=== PATIENT | male | born 1950 | race Two or more races ===

== ENCOUNTER 2017-12-24 10:41 | Inpatient (IN) | payer OTHER, BC ==
[2017-12-24 11:11] VITALS: BMI 24.7
--- NOTE | 2017-12-24 13:04 | PN ---
JARRED Progress Note Note: Patient brought in to [facility] for detox by set key driver. Intoxicated but alert and oriented. Patient independently went to store and returned to [facility] stating he fell. Denies hitting head on floor/object but fall unwittnessed by staff. Patient evaluated and alert and oriented to name and place. Denies dizziness, CP, SOB and headache. Obj: General: alert, oriented to name and place. Intoxicated. In NAD Skin: small abrasion noted on left outer ankle area. Small amount of bloody discharge. Warm and dry. Car: S1S2 Resp: CTA BL Ext: trace pedal edema, varicose veins. No redness or swelling noted Neuro: +PERRLA, EOMs intact BL, intoxicated. Alert and knows name and that he is in hospital. A/P: Unwitnessed fall Will transfer to ER for evaluation Fall Protocol #[address] Delgado
--- NOTE | 2017-12-24 20:42 | HP ---
CIWA Score - CIWA Score Nausea/Vomitin-Mild Nausea/No Vomiting Muscle Tremors: 4-Moderate,w/Arms Extend Anxiety: 4-Mod. Anxious/Guarded Agitation: 4-Moderately Restless Paroxysmal Sweats: No Perspiration Orientation: 1-Uncertain about Date Tacttile Disturbances: 0-None Auditory Disturbances: 0-None Visual Disturbances: 0-None Headache: 0-None Present CIWA-Ar Total Score: 14 Admission ROS BHS - HPI Chief Complaint: SEEKING DETOX FOR ALCOJ=HOL RELATED WITHDRAWAL SX'S. Allergies/Adverse Reactions: Allergies Allergy/AdvReac Type Severity Reaction Status Date / Time No Known Allergies Allergy Verified 12/24/17 17:59 History of Present Illness: 27 Y.O. MALE WITH LONG HX/O ALCOHOLISM PRESENTS FOR DETOX. CLIENT WITH REPORTED FALL WHILE OUTSIDE FACILITY. RETURNS FROM [facility] AFTER BEING MEDICALLY CLEARED. KNOWN TO PREVIOUS DETOX/ REHAB. STATES HAS BEEN HERE MANY YEARS AGO. REPORTS LONGEST CLEAN TIME 10 YEARS. DENIES HX/O PAST AND PRESENT THOUGH OF SI/HI, SIEZURES, BLACKOUTS, AND A/V HALLUCINATIONS Exam Limitations: No Limitations - Ebola screening Have you traveled outside of the country in the last 21 days: No Have you had contact with anyone from an Ebola affected area: No Have you been sick,other than usual withdrawal symptoms: No Do you have a fever: No - Review of Systems Constitutional: Chills, Loss of Appetite, Changes in sleep EENT: reports: Other (CORRECTIVE LENSES) Respiratory: reports: No Symptoms reported Cardiac: reports: No Symptoms Reported GI: reports: Poor Appetite, Poor Fluid Intake : reports: No Symptoms Reported Musculoskeletal: reports: Back Pain (CHRONIC) Integumentary: reports: No Symptoms Reported Neuro: reports: No Symptoms reported Endocrine: reports: No Symptoms Reported Hematology: reports: No Symptoms Reported Psychiatric: reports: Anxious Other Systems: Reviewed and Negative Patient History - Patient Medical History Hx Anemia: No Hx Asthma: No Hx Chronic Obstructive Pulmonary Disease (COPD): No Hx Cancer: No Hx Cardiac Disorders: No Hx Congestive Heart Failure: No Hx Hypertension: No Hx Hypercholesterolemia: No Hx Pacemaker: No HX Cerebrovascular Accident: No Hx Seizures: No Hx Dementia: No Hx Diabetes: No Hx Gastrointestinal Disorders: No Hx Liver Disease: No Hx Genitourinary Disorders: No Hx Sexually Transmitted Disorders: No Hx Renal Disease (ESRD): No Hx Thyroid Disease: No Hx Human Immunodeficiency Virus (HIV): No Hx Hepatitis C: No Hx Depression: No Hx Suicide Attempt: No Hx Bipolar Disorder: No Hx Schizophrenia: No Other Medical History: DENIES - Patient Surgical History Past Surgical History: No Anesthesia Reaction: No - PPD History Previous Implant?: Yes Documented Results: Negative w/o proof Implanted On Prior [facility] Admission?: No PPD to be Administered?: Yes - Smoking Cessation Smoking history: Former smoker Have you smoked in the past 12 months: No If you are a former smoker, when did you quit?: 1 yr ago Hx Chewing Tobacco Use: No Initiated information on smoking cessation: No - Substance & Tx. History Hx Alcohol Use: Yes Hx Substance Use: Yes Substance Use Type: Alcohol Hx Substance Use Treatment: Yes ([facility]) - Substances Abused Alcohol Route: Oral Frequency: Daily Amount used: 12pk beer/ 1 pint vodka Age of first use: 15 Date of Last Use: 12/24/17 Family Disease History - Family Disease History Family Disease History: Diabetes: Father, Mother Admission Physical Exam [facility] - Vital Signs Vital Signs: Vital Signs - 24 hr 12/24/17 12/24/17 01:00 11:04 Temperature 97.7 F 97.7 F Pulse Rate 71 71 Respiratory 20 20 Rate Blood Pressure 116/71 116/71 - Physical General Appearance: Yes: Appropriately Dressed, Tremorous HEENTM: Yes: EOMI, Normocephalic, Normal Voice, SHILA, Pharynx Normal, Other ( CORRECTIVE LENSES) Respiratory: Yes: Chest Non-Tender, Lungs Clear, Normal Breath Sounds, No Respiratory Distress, No Accessory Muscle Use Neck: Yes: No masses,lesions,Nodules, Supple, Trachea in good position Breast: Yes: Breast Exam Deferred Cardiology: Yes: Regular Rhythm, Regular Rate, S1, S2 Abdominal: Yes: Non Tender, Soft, Protuberent Genitourinary: Yes: Within Normal Limits Back: Yes: Normal Inspection Musculoskeletal: Yes: Other (UNSTEADY GAIT) Extremities: Yes: Normal Range of Motion, Non-Tender, Tremors Neurological: Yes: Alert Integumentary: Yes: Dry, Warm, Other (FLUSHED FACE ABRASION TO L OUTER ANKLE) Lymphatic: Yes: Within Normal Limits - Diagnostic (1) Status post fall Current Visit: Yes Status: Acute (2) Alcohol dependence with uncomplicated withdrawal Current Visit: Yes Status: Acute (3) Varicose vein of leg Current Visit: Yes Status: Chronic Qualifiers: Varicose vein complication: unspecified Laterality: bilateral Qualified Code(s): I83.93 - Asymptomatic varicose veins of bilateral lower extremities (4) Abrasions of multiple sites Current Visit: Yes Status: Acute Comment: L OUTER ANKLE Cleared for Admission [facility] - Detox or Rehab [facility] Level of Care: Medically Managed Detox Regimen/Protocol: Librium Claeared for Rehab Admission: No [facility] Breath Alcohol Content Breath Alcohol Content: 0.223 Urine Drug Screen - Results Drug Screen Negative: Yes
[2017-12-24] MEDS ORDERED: hydrOXYzine PAMOATE 50 MG CAPSULE (FP) PO PRN (20:50)
[2017-12-24] MEDS ORDERED: MENTHOL/PHENOL 1 EACH UD MM PRN (20:50)
[2017-12-24] MEDS ORDERED: MAG HYDROX/AL HYDROX/SIMETH 30 ML UNIT-DOSE CUP PO PRN (20:50)
[2017-12-24] MEDS ORDERED: ACETAMINOPHEN 325 MG TABLET (FP) PO PRN (20:50)
[2017-12-24] MEDS ORDERED: MAGNESIUM CITRATE 300 ML BOTTLE PO PRN (20:50)
[2017-12-24] MEDS ORDERED: chlordiazePOXIDE HCL 25 MG CAPSULE PO PRN (20:50)
[2017-12-24] MEDS ORDERED: P-EPHED 60MG/TRIPROLIDI 2.5MG TABLET PO PRN (20:50)
[2017-12-24] MEDS ORDERED: IBUPROFEN 400 MG TABLET (FP) PO PRN (20:50)
[2017-12-24] MEDS ORDERED: guaiFENesin/D-METHORPHAN HB 10 ML UNIT-DOSE CUPS PO PRN (20:50)
[2017-12-24] MEDS ORDERED: LOPERAMIDE HCL 2 MG CAPSULE PO PRN (20:50)
[2017-12-24] MEDS ORDERED: MAGNESIUM HYDROX 2400MG/30ML ORAL SUSPENSION 30 ML CUP PO PRN (20:50)
[2017-12-24] MEDS ORDERED: MELATONIN 5 MG TABLETS PO PRN (22:00)
[2017-12-24] MEDS: THIAMINE HCL 100 MG TABLET (FP) PO SCH (22:31)
[2017-12-24] MEDS: chlordiazePOXIDE HCL 25 MG CAPSULE PO SCH (22:31)
[2017-12-24 23:12] LABS: URINE APPEARANCE CLEAR; URINE BILIRUBIN NEGATIVE (<2.0 mg/dL); URINE COLOR YELLOW; URINE GLUCOSE (UA) NEGATIVE (NEGATIVE); URINE KETONE NEGATIVE (NEGATIVE); URINE LEUK ESTERASE NEGATIVE (NEGATIVE); URINE NITRITE NEGATIVE (NEGATIVE); URINE PROTEIN NEGATIVE (NEGATIVE); URINE UROBILINOGEN NEGATIVE mg/dL (0.2-1.0)
[2017-12-25] MEDS: chlordiazePOXIDE HCL 25 MG CAPSULE PO SCH ×4 (05:25→22:11)
[2017-12-25 10:00] LABS: HEMOGLOBIN 13.6 GM/dL (11.7-16.9); MCH 29.8 pg (25.7-33.7); MCHC 33.2 g/dl (32.0-35.9); MEAN CELL VOLUME 89.7 fl (80-96); MEAN PLT VOLUME 8.8 fl (7.5-11.1); PLATELET COUNT 136 K/MM3 (134-434); RBC 4.58 M/mm3 (4.00-5.60); RDW 18.8 % (11.9-15.9)
[2017-12-25] MEDS: PRENATAL VITAMINS W/ FOLIC ACID TABLET (FP) PO SCH (10:08)
[2017-12-25 10:11] LABS: ALBUMIN 3.1 g/dl (3.4-5.0); ANION GAP 9 (8-16); BLOOD UREA NITROGEN 11 mg/dL (7-18); CALCIUM 8.4 mg/dL (8.5-10.1); CHLORIDE 103 mmol/L (98-107); CO2 27 mmol/L (21-32); CREATININE 0.7 mg/dL (0.7-1.3); GLUCOSE,RANDOM 85 mg/dL (74-106); POTASSIUM 4.4 mmol/L (3.5-5.1); SGOT/AST 51 U/L (15-37); SGPT/ALT 48 U/L (12-78); SODIUM 139 mmol/L (136-145)
[2017-12-25 10:13] LABS: ALK PHOS 106 U/L (45-117); BILIRUBIN,TOTAL 0.4 mg/dL (0.2-1.0); TOT PROT 7.2 g/dl (6.4-8.2)
--- NOTE | 2017-12-25 10:47 | PN ---
S CIWA - CIWA Score Nausea/Vomitin-Mild Nausea/No Vomiting Muscle Tremors: 2 Anxiety: 4-Mod. Anxious/Guarded Agitation: 3 Paroxysmal Sweats: No Perspiration Orientation: 0-Oriented Tacttile Disturbances: 2-Mild Itch/Numbness/Burn Auditory Disturbances: 1-Very Mild Visual Disturbances: 2-Mild Sensitivity Headache: 0-None Present CIWA-Ar Total Score: 15 BHS Progress Note (SOAP) Subjective: Anxious, Tremors, Fatigue, Poor Appetite. Objective: PATIENT A & O X 3. NO ACUTE DISTRESS. 12/25/17 10:48 Vital Signs Temperature 97.9 F 12/25/17 09:02 Pulse Rate 93 H 12/25/17 09:02 Respiratory Rate 18 12/25/17 09:02 Blood Pressure 147/93 12/25/17 09:02 O2 Sat by Pulse Oximetry (%) Laboratory Tests 12/24/17 12/25/17 22:58 07:00 WBC 7.0 RBC 4.58 Hgb 13.6 Hct 41.0 MCV 89.7 MCH 29.8 MCHC 33.2 RDW 18.8 H Plt Count 136 MPV 8.8 Urine Color Yellow Urine Appearance Clear Urine pH 6.0 Ur Specific [place] 1.008 Urine Protein Negative Urine Glucose (UA) Negative Urine Ketones Negative Urine Blood Negative Urine Nitrite Negative Urine Bilirubin Negative Urine Urobilinogen Negative Ur Leukocyte Esterase Negative LABS NOTED. CMP, RPR RESULTS PENDING. 12/25/17 10:50 Assessment: 12/25/17 10:49 WITHDRAWAL SYMPTOMS. Plan: CONTINUE DETOX.
--- NOTE | 2017-12-25 10:52 | CONSULT ---
[facility] Psychiatric Consult - Data Date of interview: 12/25/17 Admission source: [facility] Identifying data: Patient is a 67 year old male, , father of one, retired, domiciled and supported by [facility]. This is patient's first admission to detox at [facility]. Pt. admitted to for alcohol dependence. Substance Abuse History: Smoking Cessation. Smoking history: Former smoker. Have you smoked in the past 12 months: No. If you are a former smoker, when did you quit?: 1 yr ago. Hx Chewing Tobacco Use: No. Initiated information on smoking cessation: No. - Substance & Tx. History. Hx Alcohol Use: Yes. Hx Substance Use: Yes. Substance Use Type: Alcohol. Hx Substance Use Treatment: Yes ([facility]). - Substances Abused. Alcohol. Route: Oral. Frequency: Daily. Amount used: 12pk beer/ 1 pint vodka. Age of first use: 15. Date of Last Use : 12/24/17 Medical History: Inguinal hernia surgery and umbilical surgery Psychiatric History: Patient denies h/o psychiatric hospitalization. Patient's first and only psychiatric contact was 20 years ago after telling his boss" what happens if I shoot someone here" after not receiving his paycheck. Pt. retracted his statement after speaking to a psychiatrist. Pt. denies h/o suicide attempt. Physical/Sexual Abuse/Trauma History: Denies. Mental Status Exam - Mental Status Exam Alert and Oriented to: Time, Place Cognitive Function: Good Patient Appearance: Well Groomed Mood: Euthymic Affect: Mood Congruent Patient Behavior: Cooperative Speech Pattern: Appropriate Voice Loudness: Normal Thought Process: Intact, Goal Oriented Thought Disorder: Not Present Hallucinations: Denies Suicidal Ideation: Denies Homicidal Ideation: Denies Insight/Judgement: Poor Sleep: Poorly Appetite: Fair Muscle strength/Tone: Normal Gait/Station: Normal Psychiatric Findings - Problem List ([place] 1, 2,3) (1) Alcohol dependence with uncomplicated withdrawal Current Visit: Yes Status: Acute (2) Varicose vein of leg Current Visit: Yes Status: Chronic Qualifiers: Varicose vein complication: unspecified Laterality: bilateral Qualified Code(s): I83.93 - Asymptomatic varicose veins of bilateral lower extremities (3) Abrasions of multiple sites Current Visit: Yes Status: Acute Comment: L OUTER ANKLE (4) Status post fall Current Visit: Yes Status: Acute (5) Fall Current Visit: Yes Status: Acute Qualifiers: Encounter type: initial encounter Qualified Code(s): W19.XXXA - Unspecified fall, initial encounter - Initial Treatment Plan Initial Treatment Plan: Psychoeducation provided. Detoxification in progress. Observation.
[2017-12-25] MEDS: THIAMINE HCL 100 MG TABLET (FP) PO SCH (22:11)
[2017-12-26] MEDS: chlordiazePOXIDE HCL 25 MG CAPSULE PO SCH ×3 (05:13→17:28)
[2017-12-26] MEDS: PRENATAL VITAMINS W/ FOLIC ACID TABLET (FP) PO SCH (10:05)
--- NOTE | 2017-12-26 11:09 | PN ---
[facility] CIWA - CIWA Score Nausea/Vomitin-No Nausea/No Vomiting Muscle Tremors: 2 Anxiety: 3 Agitation: 2 Paroxysmal Sweats: 3 Orientation: 0-Oriented Tacttile Disturbances: 2-Mild Itch/Numbness/Burn Auditory Disturbances: 0-None Visual Disturbances: 2-Mild Sensitivity Headache: 0-None Present CIWA-Ar Total Score: 14 S Progress Note (SOAP) Subjective: Tremors, Sweating, Fatigue. Objective: PATIENT A & O X 3. NO ACUTE DISTRESS. PATIENT DENIES CHEST PAIN. 12/26/17 11:05 Vital Signs Temperature 96.7 F L 12/26/17 09:12 Pulse Rate 99 H 12/26/17 09:12 Respiratory Rate 20 12/26/17 09:12 Blood Pressure 123/89 12/26/17 09:12 O2 Sat by Pulse Oximetry (%) Laboratory Tests 12/24/17 12/25/17 12/25/17 22:58 07:00 07:00 WBC 7.0 RBC 4.58 Hgb 13.6 Hct 41.0 MCV 89.7 MCH 29.8 MCHC 33.2 RDW 18.8 H Plt Count 136 MPV 8.8 Sodium 139 Potassium 4.4 Chloride 103 Carbon Dioxide 27 Anion Gap 9 BUN 11 Creatinine 0.7 Creat Clearance w eGFR > 60 Random Glucose 85 Calcium 8.4 L Total Bilirubin 0.4 AST 51 H ALT 48 Alkaline Phosphatase 106 Total Protein 7.2 Albumin 3.1 L Urine Color Yellow Urine Appearance Clear Urine pH 6.0 Ur Specific [place] 1.008 Urine Protein Negative Urine Glucose (UA) Negative Urine Ketones Negative Urine Blood Negative Urine Nitrite Negative Urine Bilirubin Negative Urine Urobilinogen Negative Ur Leukocyte Esterase Negative RPR Titer 12/25/17 07:00 WBC RBC Hgb Hct MCV MCH MCHC RDW Plt Count MPV Sodium Potassium Chloride Carbon Dioxide Anion Gap BUN Creatinine Creat Clearance w eGFR Random Glucose Calcium Total Bilirubin AST ALT Alkaline Phosphatase Total Protein Albumin Urine Color Urine Appearance Urine pH Ur Specific [place] Urine Protein Urine Glucose (UA) Urine Ketones Urine Blood Urine Nitrite Urine Bilirubin Urine Urobilinogen Ur Leukocyte Esterase RPR Titer Nonreactive LABS NOTED. 12/26/17 11:06 Assessment: 12/26/17 11:06 WITHDRAWAL SYMPTOMS. HYPERTENSION. 12/26/17 11:09 Plan: CONTINUE DETOX. AMLODIPINE, 5 MG PO DAILY FOR ELEVATED BP (PATIENT WAS PRESCRIBED THIS OUTPATIENT PRIOR TO ADMISSION TO DETOX).
--- NOTE | 2017-12-26 12:57 | EKG ---
Test Reason : Blood Pressure : / mmHG Vent. Rate : 071 BPM Atrial Rate : 071 BPM P-R Int : 160 ms QRS Dur : 088 ms QT Int : 376 ms P-R-T Axes : 058 042 055 degrees QTc Int : 408 ms NORMAL SINUS RHYTHM NORMAL ECG NO PREVIOUS ECGS AVAILABLE Confirmed by KIT BLAKELY, KEIRA ([id number]) on 12/26/2017 12:57:24 PM Referred By: Confirmed By:KEIRA PANTOJA MD
[2017-12-26] MEDS: amLODIPine BESYLATE 5 MG TABLET (FP) PO SCH (13:52)
[2017-12-26] MEDS: chlordiazePOXIDE 5 MG CAPSULE PO SCH (22:13)
[2017-12-26] MEDS: THIAMINE HCL 100 MG TABLET (FP) PO SCH (22:13)
[2017-12-27] MEDS: chlordiazePOXIDE 5 MG CAPSULE PO SCH ×3 (05:40→17:31)
[2017-12-27] MEDS: amLODIPine BESYLATE 5 MG TABLET (FP) PO SCH (10:06)
[2017-12-27] MEDS: PRENATAL VITAMINS W/ FOLIC ACID TABLET (FP) PO SCH (10:06)
--- NOTE | 2017-12-27 11:54 | PN ---
B[facility] Progress Note (SOAP) Subjective: Sweating, Body Aches. Objective: PATIENT A & O X 3, OBSERVED AMBULATING ON UNIT. NO ACUTE DISTRESS. 12/27/17 11:52 Vital Signs Temperature 97.4 F L 12/27/17 10:32 Pulse Rate 87 12/27/17 10:32 Respiratory Rate 20 12/27/17 10:32 Blood Pressure 141/88 12/27/17 10:32 O2 Sat by Pulse Oximetry (%) Laboratory Tests 12/24/17 12/25/17 12/25/17 22:58 07:00 07:00 WBC 7.0 RBC 4.58 Hgb 13.6 Hct 41.0 MCV 89.7 MCH 29.8 MCHC 33.2 RDW 18.8 H Plt Count 136 MPV 8.8 Sodium 139 Potassium 4.4 Chloride 103 Carbon Dioxide 27 Anion Gap 9 BUN 11 Creatinine 0.7 Creat Clearance w eGFR > 60 Random Glucose 85 Calcium 8.4 L Total Bilirubin 0.4 AST 51 H ALT 48 Alkaline Phosphatase 106 Total Protein 7.2 Albumin 3.1 L Urine Color Yellow Urine Appearance Clear Urine pH 6.0 Ur Specific [place] 1.008 Urine Protein Negative Urine Glucose (UA) Negative Urine Ketones Negative Urine Blood Negative Urine Nitrite Negative Urine Bilirubin Negative Urine Urobilinogen Negative Ur Leukocyte Esterase Negative RPR Titer 12/25/17 07:00 WBC RBC Hgb Hct MCV MCH MCHC RDW Plt Count MPV Sodium Potassium Chloride Carbon Dioxide Anion Gap BUN Creatinine Creat Clearance w eGFR Random Glucose Calcium Total Bilirubin AST ALT Alkaline Phosphatase Total Protein Albumin Urine Color Urine Appearance Urine pH Ur Specific [place] Urine Protein Urine Glucose (UA) Urine Ketones Urine Blood Urine Nitrite Urine Bilirubin Urine Urobilinogen Ur Leukocyte Esterase RPR Titer Nonreactive LABS NOTED. Assessment: 12/27/17 11:53 WITHDRAWAL SYMPTOMS. Plan: CONTINUE DETOX. PATIENT SCHEDULED FOR D/C TOMORROW.
[2017-12-27] MEDS: THIAMINE HCL 100 MG TABLET (FP) PO SCH (22:25)
[2017-12-27] MEDS: chlordiazePOXIDE HCL 10 MG CAPSULE PO SCH (22:27)
[2017-12-28] MEDS: chlordiazePOXIDE HCL 10 MG CAPSULE PO SCH (05:08)
[2017-12-28 06:00] VITALS: BP 146/84; PULSE 88; TEMP 98.3
--- NOTE | 2017-12-28 17:04 | PN ---
BHS Progress Note (SOAP) Subjective: Patient denies current Detox symptoms and reports that he feels well overall. Objective: PATIENT A & O X 3, OBSERVED AMBULATING ON UNIT. NO ACUTE DISTRESS. 12/28/17 17:03 Vital Signs Temperature 98.3 F 12/28/17 05:59 Pulse Rate 88 12/28/17 05:59 Respiratory Rate 18 12/28/17 05:59 Blood Pressure 146/84 12/28/17 05:59 O2 Sat by Pulse Oximetry (%) Laboratory Tests 12/24/17 12/25/17 12/25/17 22:58 07:00 07:00 WBC 7.0 RBC 4.58 Hgb 13.6 Hct 41.0 MCV 89.7 MCH 29.8 MCHC 33.2 RDW 18.8 H Plt Count 136 MPV 8.8 Sodium 139 Potassium 4.4 Chloride 103 Carbon Dioxide 27 Anion Gap 9 BUN 11 Creatinine 0.7 Creat Clearance w eGFR > 60 Random Glucose 85 Calcium 8.4 L Total Bilirubin 0.4 AST 51 H ALT 48 Alkaline Phosphatase 106 Total Protein 7.2 Albumin 3.1 L Urine Color Yellow Urine Appearance Clear Urine pH 6.0 Ur Specific [place] 1.008 Urine Protein Negative Urine Glucose (UA) Negative Urine Ketones Negative Urine Blood Negative Urine Nitrite Negative Urine Bilirubin Negative Urine Urobilinogen Negative Ur Leukocyte Esterase Negative RPR Titer 12/25/17 07:00 WBC RBC Hgb Hct MCV MCH MCHC RDW Plt Count MPV Sodium Potassium Chloride Carbon Dioxide Anion Gap BUN Creatinine Creat Clearance w eGFR Random Glucose Calcium Total Bilirubin AST ALT Alkaline Phosphatase Total Protein Albumin Urine Color Urine Appearance Urine pH Ur Specific [place] Urine Protein Urine Glucose (UA) Urine Ketones Urine Blood Urine Nitrite Urine Bilirubin Urine Urobilinogen Ur Leukocyte Esterase RPR Titer Nonreactive LABS NOTED. Assessment: 12/28/17 17:04 COMPLETION OF DETOX REGIMEN. Plan: PATIENT SCHEDULED FOR DISCHARGE FROM DETOX UNIT TODAY.
--- NOTE | 2017-12-28 17:09 | DS ---
[facility] Detox Discharge Summary Admission Date: 12/24/17 Discharge Date: 12/28/17 - History Present History: Alcohol Dependence Additional Comments: PATIENT WILL RETURN TO [facility] ([place] FOR AFTERCARE. PATIENT WAS DISCHARGED FROM DETOX UNIT IN STABLE MEDICAL CONDITION. Pertinent Past History: History of Fall, HTN, Abrasions of Multiple Sites, History of Vericose Veins of Legs. - Physical Exam Results Vital Signs: Vital Signs Temperature 98.3 F 12/28/17 05:59 Pulse Rate 88 12/28/17 05:59 Respiratory Rate 18 12/28/17 05:59 Blood Pressure 146/84 12/28/17 05:59 O2 Sat by Pulse Oximetry (%) Pertinent Admission Physical Exam Findings: WITHDRAWAL SYMPTOMS. Laboratory Tests 12/24/17 12/25/17 12/25/17 22:58 07:00 07:00 WBC 7.0 RBC 4.58 Hgb 13.6 Hct 41.0 MCV 89.7 MCH 29.8 MCHC 33.2 RDW 18.8 H Plt Count 136 MPV 8.8 Sodium 139 Potassium 4.4 Chloride 103 Carbon Dioxide 27 Anion Gap 9 BUN 11 Creatinine 0.7 Creat Clearance w eGFR > 60 Random Glucose 85 Calcium 8.4 L Total Bilirubin 0.4 AST 51 H ALT 48 Alkaline Phosphatase 106 Total Protein 7.2 Albumin 3.1 L Urine Color Yellow Urine Appearance Clear Urine pH 6.0 Ur Specific [place] 1.008 Urine Protein Negative Urine Glucose (UA) Negative Urine Ketones Negative Urine Blood Negative Urine Nitrite Negative Urine Bilirubin Negative Urine Urobilinogen Negative Ur Leukocyte Esterase Negative RPR Titer 12/25/17 07:00 WBC RBC Hgb Hct MCV MCH MCHC RDW Plt Count MPV Sodium Potassium Chloride Carbon Dioxide Anion Gap BUN Creatinine Creat Clearance w eGFR Random Glucose Calcium Total Bilirubin AST ALT Alkaline Phosphatase Total Protein Albumin Urine Color Urine Appearance Urine pH Ur Specific [place] Urine Protein Urine Glucose (UA) Urine Ketones Urine Blood Urine Nitrite Urine Bilirubin Urine Urobilinogen Ur Leukocyte Esterase RPR Titer Nonreactive LABS NOTED. - Treatment Hospital Course: Detox Protocol Followed, Detoxed Safely, Responded well, Discharged Condition Good Patient has Accepted a Rehab Referral to: PT. RETURNING TO [facility] ([place] - Medication Discharge Medications: Ambulatory Orders Amlodipine Besylate 5 mg PO DAILY 12/26/17 Chlorthalidone 25 mg PO DAILY 12/26/17 - Diagnosis (1) Abrasions of multiple sites Status: Acute (2) Alcohol dependence with uncomplicated withdrawal Status: Acute (3) Status post fall Status: Acute (4) Varicose vein of leg Status: Chronic Qualifiers: Varicose vein complication: unspecified Laterality: bilateral Qualified Code(s): I83.93 - Asymptomatic varicose veins of bilateral lower extremities (5) Hypertension Status: Chronic Qualifiers: Hypertension type: unspecified Qualified Code(s): I10 - Essential (primary ) hypertension (6) Fall Status: Acute Qualifiers: Encounter type: initial encounter Qualified Code(s): W19.XXXA - Unspecified fall, initial encounter - AMA Did Patient Leave Against Medical Advice: No
== END 2017-12-28 08:34 | disposition home or self-care (01) | DRG 897 ==
LOC: YASAS 10:41 → Y3N 20:59
PROVIDERS: ADMIT Surgery; ATTEND Surgery
PROC: HZ2ZZZZ Detoxification Services for Substance Abuse Treatment (ICD-10-PCS; principal; 2017-12-24)
DX: F10.230 Alcohol dependence with withdrawal, uncomplicated (principal); I10 Essential (primary) hypertension; I83.93 Asymptomatic varicose veins of bilateral lower extremities; S90.512A Abrasion, left ankle, initial encounter; W19.XXXA Unspecified fall, initial encounter; Y93.89 Activity, other specified; Y92.9 Unspecified place or not applicable; Y99.8 Other external cause status; Z91.81 History of falling; R26.89 Other abnormalities of gait and mobility
CPT/HCPCS: 36415; 70450-TC; 73610-TC-LT-FY; 73630-TC-LT; 80053; 81003; 85027; 86593; 90715; 93005; 93010

== ENCOUNTER 2018-07-12 13:32 | Inpatient (IN) | payer OTHER, BC ==
[2018-07-12 17:48] VITALS: BMI 21.0
--- NOTE | 2018-07-12 18:16 | HP ---
CIWA Score Nausea/Vomitin Muscle Tremors: 2 Anxiety: 1-Mildly Anxious Agitation: 1-Slight > Activity Paroxysmal Sweats: 2 Orientation: 0-Oriented Tacttile Disturbances: 0-None Auditory Disturbances: 0-None Visual Disturbances: 0-None Headache: 3-Moderate CIWA-Ar Total Score: 12 - Admission Criteria [facility] Guidelines: Admission for Medically Managed Detox: Requires at least one of the followin. CIWA greater than 12 2. Seizures within the past 24 hours 3. Delirium tremens within the past 24 hours 4. Hallucinations within the past 24 hours 5. Acute intervention needed for co occurring medical disorder 6. Acute intervention needed for co occurring psychiatric disorder 7. Severe withdrawal that cannot be handled at a lower level of care (continued vomiting, continued diarrhea, abnormal vital signs) requiring intravenous medication and/or fluids 8. Patient presents the following: CIWA greater than 12 Admission Criteria Met: Admission criteria met Admission ROS [facility] Chief Complaint: here for alcohol detox. 68 yo with h/o HTN, not taking medications, states he has been drinking a lot of beers in the last 2 months. Was here on 11/2017, says stopped drinking for a few months, but he "likes" beer and restarted. Alcohol use: 7 beers and 1/2 pint vodka, no h/o seizures, no h/o DT's, last drink this afternoon of Vodka. Denies other illicit drug use. DUR: no controlled substances Utox: neg, JOSEF: 0.234 Allergies/Adverse Reactions: Allergies Allergy/AdvReac Type Severity Reaction Status Date / Time No Known Allergies Allergy Verified 07/12/18 17:49 Exam Limitations: No Limitations - Ebola screening Have you traveled outside of the country in the last 21 days: No Have you had contact with anyone from an Ebola affected area: No Have you been sick,other than usual withdrawal symptoms: No - Review of Systems Constitutional: No Symptoms Reported EENT: reports: No Symptoms Reported Respiratory: reports: No Symptoms reported Cardiac: reports: No Symptoms Reported GI: reports: No Symptoms Reported : reports: No Symptoms Reported Musculoskeletal: reports: No Symptoms Reported Integumentary: reports: No Symptoms Reported Neuro: reports: No Symptoms reported Endocrine: reports: No Symptoms Reported Hematology: reports: No Symptoms Reported Psychiatric: reports: No Sypmtoms Reported Patient History - Patient Medical History Hx Anemia: No Hx Asthma: No Hx Chronic Obstructive Pulmonary Disease (COPD): No Hx Cancer: No Hx Cardiac Disorders: No Hx Congestive Heart Failure: No Hx Hypertension: Yes (not taking med) Hx Hypercholesterolemia: No Hx Pacemaker: No HX Cerebrovascular Accident: No Hx Seizures: No Hx Dementia: No Hx Diabetes: No Hx Gastrointestinal Disorders: No Hx Liver Disease: No Hx Genitourinary Disorders: No Hx Sexually Transmitted Disorders: No Hx Renal Disease (ESRD): No Hx Thyroid Disease: No Hx Human Immunodeficiency Virus (HIV): No Hx Hepatitis C: No Hx Depression: No Hx Suicide Attempt: No Hx Bipolar Disorder: No Hx Schizophrenia: No - Patient Surgical History Past Surgical History: Yes Hx Genitourinary Surgery: Yes (penile implant- 2 years- helps) Other Surgical History: h/o hernia repair- inguinal and umbilical Anesthesia Reaction: No - PPD History Date: 12/26/17 - Smoking Cessation Smoking history: Former smoker Have you smoked in the past 12 months: No If you are a former smoker, when did you quit?: 1 yr ago Hx Chewing Tobacco Use: No Initiated information on smoking cessation: Yes 'Breaking Loose' booklet given: 07/12/18 - Substances Abused Alcohol Route: Oral Frequency: Daily Amount used: 1 P[place] Age of first use: 67 Date of Last Use: 07/12/18 Family Disease History - Family Disease History Family Disease History: Diabetes: Father, Mother, [place]: Father Admission Physical Exam BHS - Vital Signs Vital Signs: Vital Signs - 24 hr 07/12/18 17:41 Temperature 97.8 F Pulse Rate 82 Respiratory 18 Rate Blood Pressure 133/77 - Physical General Appearance: Yes: Within Normal Limits HEENTM: Yes: Within Normal Limits Respiratory: Yes: Within Normal Limits Neck: Yes: Within Normal Limits Breast: Yes: Breast Exam Deferred Cardiology: Yes: Within Normal Limits Abdominal: Yes: Within Normal Limits Genitourinary: Yes: Within Normal Limits Back: Yes: Within Normal Limits Musculoskeletal: Yes: Within Normal Limits Extremities: Yes: Within Normal Limits Neurological: Yes: Within Normal Limits Integumentary: Yes: Within Normal Limits Lymphatic: Yes: Within Normal Limits - Diagnostic (1) Alcohol dependence with uncomplicated withdrawal Current Visit: No Status: Acute BHS Breath Alcohol Content Breath Alcohol Content: 0.234 Urine Drug Screen - Results Drug Screen Negative: Yes
[2018-07-12] MEDS ORDERED: chlordiazePOXIDE HCL 25 MG CAPSULE PO PRN (18:21)
[2018-07-12] MEDS ORDERED: P-EPHED 60MG/TRIPROLIDI 2.5MG TABLET PO PRN (18:22)
[2018-07-12] MEDS ORDERED: ACETAMINOPHEN 325 MG TABLET (FP) PO PRN (18:22)
[2018-07-12] MEDS ORDERED: MENTHOL/PHENOL 1 EACH UD MM PRN (18:22)
[2018-07-12] MEDS ORDERED: IBUPROFEN 400 MG TABLET (FP) PO PRN (18:22)
[2018-07-12] MEDS ORDERED: MAGNESIUM CITRATE 300 ML BOTTLE PO PRN (18:22)
[2018-07-12] MEDS ORDERED: guaiFENesin/D-METHORPHAN HB 10 ML UNIT-DOSE CUPS PO PRN (18:22)
[2018-07-12] MEDS ORDERED: MAGNESIUM HYDROX 2400MG/30ML ORAL SUSPENSION 30 ML CUP PO PRN (18:22)
[2018-07-12] MEDS ORDERED: LOPERAMIDE HCL 2 MG CAPSULE PO PRN (18:22)
[2018-07-12] MEDS: MELATONIN 5 MG TABLETS PO PRN (22:16)
[2018-07-12] MEDS: THIAMINE HCL 100 MG TABLET (FP) PO SCH (22:16)
[2018-07-12] MEDS: chlordiazePOXIDE HCL 25 MG CAPSULE PO SCH (22:16)
[2018-07-13] MEDS: chlordiazePOXIDE HCL 25 MG CAPSULE PO SCH ×3 (06:02→16:51)
[2018-07-13] MEDS: PRENATAL VITAMINS W/ FOLIC ACID TABLET (FP) PO SCH (10:13)
[2018-07-13 10:55] LABS: ALBUMIN 2.8 g/dl (3.4-5.0); ALK PHOS 85 U/L (45-117); ANION GAP 11 MMOL/L (8-16); BILIRUBIN,TOTAL 0.9 mg/dL (0.2-1); BLOOD UREA NITROGEN 11 mg/dL (7-18); CALCIUM 8.6 mg/dL (8.5-10.1); CHLORIDE 96 mmol/L (98-107); CO2 25 mmol/L (21-32); CREATININE 0.7 mg/dL (0.55-1.3); GLUCOSE,RANDOM 93 mg/dL (74-106); POTASSIUM 4.2 mmol/L (3.5-5.1); SGOT/AST 95 U/L (15-37); SGPT/ALT 45 U/L (13-61); SODIUM 132 mmol/L (136-145); TOT PROT 6.9 g/dl (6.4-8.2)
[2018-07-13 11:09] LABS: HEMATOCRIT 41.3 % (35.4-49); HEMOGLOBIN 13.5 GM/dL (11.7-16.9); MCH 29.7 pg (25.7-33.7); MCHC 32.6 g/dl (32.0-35.9); MEAN CELL VOLUME 91.1 fl (80-96); MEAN PLT VOLUME 9.2 fl (7.5-11.1); PLATELET COUNT 95 K/MM3 (134-434); RBC 4.53 M/mm3 (4.00-5.60); RDW 14.8 % (11.9-15.9); WHITE BLOOD COUNT 4.6 K/mm3 (4.0-10.0)
--- NOTE | 2018-07-13 16:15 | PN ---
[facility] CIWA - CIWA Score Nausea/Vomitin-Mild Nausea/No Vomiting Muscle Tremors: 6 Anxiety: 2 Agitation: 0-Normal Activity Paroxysmal Sweats: 3 Orientation: 0-Oriented Tacttile Disturbances: 0-None Auditory Disturbances: 0-None Visual Disturbances: 0-None Headache: 0-None Present CIWA-Ar Total Score: 12 S Progress Note (SOAP) Subjective: shakes sleep disturbance Objective: 07/13/18 16:12 in bed A & O x 3 Tremors to arms Vital Signs Temperature 98.4 F 07/13/18 13:48 Pulse Rate 91 H 07/13/18 15:30 Respiratory Rate 18 07/13/18 15:30 Blood Pressure 117/63 07/13/18 13:48 O2 Sat by Pulse Oximetry (%) Laboratory Last Values WBC 4.6 K/mm3 (4.0-10.0) 07/13/18 07:45 RBC 4.53 M/mm3 (4.00-5.60) 07/13/18 07:45 Hgb 13.5 GM/dL (11.7-16.9) 07/13/18 07:45 Hct 41.3 % (35.4-49) 07/13/18 07:45 MCV 91.1 fl (80-96) 07/13/18 07:45 MCH 29.7 pg (25.7-33.7) 07/13/18 07:45 MCHC 32.6 g/dl (32.0-35.9) 07/13/18 07:45 RDW 14.8 % (11.9-15.9) D 07/13/18 07:45 Plt Count 95 K/MM3 (134-434) L D 07/13/18 07:45 MPV 9.2 fl (7.5-11.1) 07/13/18 07:45 Sodium 132 mmol/L (136-145) L 07/13/18 07:45 Potassium 4.2 mmol/L (3.5-5.1) 07/13/18 07:45 Chloride 96 mmol/L (98-107) L 07/13/18 07:45 Carbon Dioxide 25 mmol/L (21-32) 07/13/18 07:45 Anion Gap 11 MMOL/L (8-16) 07/13/18 07:45 BUN 11 mg/dL (7-18) 07/13/18 07:45 Creatinine 0.7 mg/dL (0.55-1.3) 07/13/18 07:45 Creat Clearance w eGFR > 60 (>60) 07/13/18 07:45 Random Glucose 93 mg/dL (74-106) 07/13/18 07:45 Calcium 8.6 mg/dL (8.5-10.1) 07/13/18 07:45 Total Bilirubin 0.9 mg/dL (0.2-1) 07/13/18 07:45 AST 95 U/L (15-37) H 07/13/18 07:45 ALT 45 U/L (13-61) 07/13/18 07:45 Alkaline Phosphatase 85 U/L (45-117) 07/13/18 07:45 Total Protein 6.9 g/dl (6.4-8.2) 07/13/18 07:45 Albumin 2.8 g/dl (3.4-5.0) L 07/13/18 07:45 labs noted Assessment: 07/13/18 16:14 Withdrawal sx slightly elevated liver enzymes Plan: continue detox increase hydration
[2018-07-13] MEDS: MAG HYDROX/AL HYDROX/SIMETH 30 ML UNIT-DOSE CUP PO PRN (22:15)
[2018-07-13] MEDS: THIAMINE HCL 100 MG TABLET (FP) PO SCH (22:17)
[2018-07-13] MEDS ORDERED: chlordiazePOXIDE 5 MG CAPSULE PO PRN (22:21)
[2018-07-13] MEDS: chlordiazePOXIDE 5 MG CAPSULE PO SCH (22:42)
[2018-07-13] MEDS: MELATONIN 5 MG TABLETS PO PRN (22:43)
[2018-07-13] MEDS ORDERED: chlordiazePOXIDE HCL 25 MG CAPSULE PO SCH (23:00)
[2018-07-14] MEDS: chlordiazePOXIDE 5 MG CAPSULE PO SCH ×4 (06:05→22:22)
[2018-07-14] MEDS: PRENATAL VITAMINS W/ FOLIC ACID TABLET (FP) PO SCH (10:03)
--- NOTE | 2018-07-14 12:18 | PN ---
[facility] CIWA - CIWA Score Nausea/Vomitin-Mild Nausea/No Vomiting Muscle Tremors: 3 Anxiety: 2 Agitation: 1-Slight > Activity Paroxysmal Sweats: 1-Minimal Palms Moist Orientation: 1-Uncertain about Date Tacttile Disturbances: 1-Very Mild Itch/Numbness Auditory Disturbances: 0-None Visual Disturbances: 0-None Headache: 2-Mild CIWA-Ar Total Score: 12 S Progress Note (SOAP) Subjective: feeling better today had breakfast and lunch mild gi distress patient took a shower and resting on bed tremor sweating anxiety irritable Objective: 07/14/18 12:20 Vital Signs Temperature 98.2 F 07/14/18 09:34 Pulse Rate 109 H 07/14/18 09:34 Respiratory Rate 19 07/14/18 09:34 Blood Pressure 147/55 L 07/14/18 09:34 O2 Sat by Pulse Oximetry (%) Vital Signs Laboratory Last Values WBC 4.6 K/mm3 (4.0-10.0) 07/13/18 07:45 RBC 4.53 M/mm3 (4.00-5.60) 07/13/18 07:45 Hgb 13.5 GM/dL (11.7-16.9) 07/13/18 07:45 Hct 41.3 % (35.4-49) 07/13/18 07:45 MCV 91.1 fl (80-96) 07/13/18 07:45 MCH 29.7 pg (25.7-33.7) 07/13/18 07:45 MCHC 32.6 g/dl (32.0-35.9) 07/13/18 07:45 RDW 14.8 % (11.9-15.9) D 07/13/18 07:45 Plt Count 95 K/MM3 (134-434) L D 07/13/18 07:45 MPV 9.2 fl (7.5-11.1) 07/13/18 07:45 Sodium 132 mmol/L (136-145) L 07/13/18 07:45 Potassium 4.2 mmol/L (3.5-5.1) 07/13/18 07:45 Chloride 96 mmol/L (98-107) L 07/13/18 07:45 Carbon Dioxide 25 mmol/L (21-32) 07/13/18 07:45 Anion Gap 11 MMOL/L (8-16) 07/13/18 07:45 BUN 11 mg/dL (7-18) 07/13/18 07:45 Creatinine 0.7 mg/dL (0.55-1.3) 07/13/18 07:45 Creat Clearance w eGFR > 60 (>60) 07/13/18 07:45 Random Glucose 93 mg/dL (74-106) 07/13/18 07:45 Calcium 8.6 mg/dL (8.5-10.1) 07/13/18 07:45 Total Bilirubin 0.9 mg/dL (0.2-1) 07/13/18 07:45 AST 95 U/L (15-37) H 07/13/18 07:45 ALT 45 U/L (13-61) 07/13/18 07:45 Alkaline Phosphatase 85 U/L (45-117) 07/13/18 07:45 Total Protein 6.9 g/dl (6.4-8.2) 07/13/18 07:45 Albumin 2.8 g/dl (3.4-5.0) L 07/13/18 07:45 RPR Titer Nonreactive (NONREACTIVE) 07/13/18 07:45 lab noted Assessment: 07/14/18 12:21 withdrawal sx Plan: continue detox
[2018-07-14] MEDS: MAG HYDROX/AL HYDROX/SIMETH 30 ML UNIT-DOSE CUP PO PRN (15:32)
[2018-07-14] MEDS: THIAMINE HCL 100 MG TABLET (FP) PO SCH (22:22)
[2018-07-15] MEDS: chlordiazePOXIDE 5 MG CAPSULE PO SCH ×4 (05:53→22:20)
[2018-07-15] MEDS: PRENATAL VITAMINS W/ FOLIC ACID TABLET (FP) PO SCH (10:16)
--- NOTE | 2018-07-15 14:17 | PN ---
[facility] Progress Note (SOAP) Subjective: Fatigue. Objective: PATIENT A & O X 3. IN NO ACUTE DISTRESS. 07/15/18 14:15 Vital Signs Temperature 97.7 F 07/15/18 13:21 Pulse Rate 102 H 07/15/18 13:21 Respiratory Rate 16 07/15/18 13:21 Blood Pressure 114/76 07/15/18 13:21 O2 Sat by Pulse Oximetry (%) Laboratory Tests 07/13/18 07/13/18 07/13/18 07:45 07:45 07:45 WBC 4.6 RBC 4.53 Hgb 13.5 Hct 41.3 MCV 91.1 MCH 29.7 MCHC 32.6 RDW 14.8 D Plt Count 95 L D MPV 9.2 Sodium 132 L Potassium 4.2 Chloride 96 L Carbon Dioxide 25 Anion Gap 11 BUN 11 Creatinine 0.7 Creat Clearance w eGFR > 60 Random Glucose 93 Calcium 8.6 Total Bilirubin 0.9 AST 95 H ALT 45 Alkaline Phosphatase 85 Total Protein 6.9 Albumin 2.8 L RPR Titer Nonreactive LABS NOTED. Assessment: 07/15/18 14:15 WITHDRAWAL SYMPTOMS. THROMBOCYTOPENIA. 07/15/18 14:16 Plan: CONTINUE DETOX. PATIENT SCHEDULED FOR D/C TOMORROW.
[2018-07-15] MEDS: THIAMINE HCL 100 MG TABLET (FP) PO SCH (22:20)
[2018-07-16] MEDS: chlordiazePOXIDE 5 MG CAPSULE PO SCH (06:13)
--- NOTE | 2018-07-16 08:40 | DS ---
[facility] Detox Discharge Summary Admission Date: 07/12/18 Discharge Date: 07/16/18 - History Present History: Alcohol Dependence - Physical Exam Results Vital Signs: Vital Signs Temperature 97.5 F L 07/16/18 07:36 Pulse Rate 97 H 07/16/18 07:36 Respiratory Rate 20 07/16/18 07:36 Blood Pressure 138/90 07/16/18 07:36 O2 Sat by Pulse Oximetry (%) - Treatment Hospital Course: Detox Protocol Followed, Detoxed Safely, Responded well, Discharged Condition Good, Rehab Referral Accepted - Medication Discharge Medications: Ambulatory Orders Amlodipine Besylate 5 mg PO DAILY 12/26/17 - AMA Did Patient Leave Against Medical Advice: No (referred to [facility])
[2018-07-16 09:14] VITALS: BP 140/87; PULSE 102; TEMP 98.4
== END 2018-07-16 08:59 | disposition home or self-care (01) | DRG 897 ==
LOC: YASAS 13:32 → Y3N 20:05 → Y6N 20:12
PROC: HZ2ZZZZ Detoxification Services for Substance Abuse Treatment (ICD-10-PCS; principal; 2018-07-12)
DX: F10.230 Alcohol dependence with withdrawal, uncomplicated (principal); I10 Essential (primary) hypertension; D69.6 Thrombocytopenia, unspecified; I83.93 Asymptomatic varicose veins of bilateral lower extremities; T07.XXXA Unspecified multiple injuries, initial encounter; Z91.81 History of falling
CPT/HCPCS: 36415; 80053; 85027; 86593

== ENCOUNTER 2020-02-26 14:45 | Inpatient (IN) | payer OTHER ==
--- NOTE | 2020-02-26 15:36 | BHS.RME ---
Substance Use & Tx History - Substance Use History Alcohol Substance amount: 15 beers 12 oz Frequency of use: Daily Substance route: Oral Date of Last Use: 02/26/20 (2;30pm) Nicotine Substance amount: former smoker Physical/Psych/Mental Status - Behavior General Behavior: Increased activity (restlessness, agitation) Eye Contact: Normal - Cooperativeness Cooperativeness: Cooperative - Thinking Thought Processes: Tight, Logical, Goal Directed Thought content: Future oriented - Physical Health Problems Is patient presently having any pain?: No Does patient presently have any injuries (include location): No Does patient currently have a fever: No Is patient : No CIWA Nausea/Vomitin-Int. Nausea w/Dry Heave Muscle Tremors: 3 Anxiety: 3 Agitation: 3 Paroxysmal Sweats: 2 Orientation: 1-Uncertain about Date Tacttile Disturbances: 0-None Auditory Disturbances: 0-None Visual Disturbances: 0-None Headache: 2-Mild CIWA-Ar Total Score: 18
--- NOTE | 2020-02-26 16:58 | HP ---
CIWA Score Nausea/Vomitin-Int. Nausea w/Dry Heave Muscle Tremors: 3 Anxiety: 3 Agitation: 3 Paroxysmal Sweats: 2 Orientation: 1-Uncertain about Date Tacttile Disturbances: 0-None Auditory Disturbances: 0-None Visual Disturbances: 0-None Headache: 2-Mild CIWA-Ar Total Score: 18 - Admission Criteria OASAS Guidelines: Admission for Medically Managed Detox: Requires at least one of the followin. CIWA greater than 12 2. Seizures within the past 24 hours 3. Delirium tremens within the past 24 hours 4. Hallucinations within the past 24 hours 5. Acute intervention needed for co occurring medical disorder 6. Acute intervention needed for co occurring psychiatric disorder 7. Severe withdrawal that cannot be handled at a lower level of care (continued vomiting, continued diarrhea, abnormal vital signs) requiring intravenous medication and/or fluids 8. Admitting History and Physical - Primary Care Physician PCP: Dr. Cruz - Admission Chief Complaint: Detox History of Present Illness: Patient is a 70 y.o M PMHx chronic back pain presenting to [facility] for detox. Patient was examined and in no acute distress. 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 Patient had quit smoking in 2004. 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 Cardiovascular: No: HTN, Hyperlipdemia Gastrointestinal: No: Constipation Hepatobiliary: No: Hepatitis A, Hepatitis B, Hepatitis C - Past Surgical History Past Surgical History: Yes: Hernia Repair - Smoking History Smoking history: Former smoker Have you smoked in the past 12 months: No If you are a former smoker, when did you quit?: 1 yr ago - Alcohol/Substance Use Hx Alcohol Use: Yes Number of Drinks Daily: 15 - Social History Usual Living Arrangement: Yes: Alone (rented room) ADL: Independent History of Recent Travel: No Admission ROS [facility] Allergies/Adverse Reactions: Allergies Allergy/AdvReac Type Severity Reaction Status Date / Time No Known Allergies Allergy Verified 02/26/20 17:57 - Ebola screening Have you traveled outside of the country in the last 21 days: No Have you had contact with anyone from an Ebola affected area: No Have you been sick,other than usual withdrawal symptoms: No Do you have a fever: No - Review of Systems Constitutional: No Symptoms Reported Respiratory: denies: Cough, Shortness of Breath Cardiac: denies: Chest Pain, Lightheadedness GI: reports: Nausea, Vomiting. denies: Constipated, Diarrhea Psychiatric: reports: No Sypmtoms Reported, Judgement Intact, Mood/Affect Appropiate, Orientated x3 Patient History - Patient Medical History Hx Anemia: No Hx Asthma: No Hx Chronic Obstructive Pulmonary Disease (COPD): No Hx Cancer: No Hx Cardiac Disorders: No Hx Congestive Heart Failure: No Hx Hypertension: Yes (not taking med) Hx Hypercholesterolemia: No Hx Pacemaker: No HX Cerebrovascular Accident: No Hx Seizures: No Hx Dementia: No Hx Diabetes: No Hx Gastrointestinal Disorders: No Hx Liver Disease: No Hx Genitourinary Disorders: No Hx Sexually Transmitted Disorders: No Hx Renal Disease (ESRD): No Hx Thyroid Disease: No Hx Human Immunodeficiency Virus (HIV): No Hx Hepatitis C: No Hx Depression: No Hx Suicide Attempt: No Hx Bipolar Disorder: No Hx Schizophrenia: No - Patient Surgical History Past Surgical History: Yes Hx Genitourinary Surgery: Yes (penile implant- 2 years- helps) Other Surgical History: h/o hernia repair- inguinal and umbilical Anesthesia Reaction: No - PPD History Date: 12/26/17 - Smoking Cessation Smoking history: Former smoker Have you smoked in the past 12 months: No If you are a former smoker, when did you quit?: 1 yr ago Hx Chewing Tobacco Use: No Initiated information on smoking cessation: Yes 'Breaking Loose' booklet given: 02/26/20 - Substances abused Alcohol Substance route: Oral Frequency: Daily Amount used: 15 cans Age of first use: 13 Date of last use: 02/26/20 Admission Physical Exam [facility] - Vital Signs Vital Signs: Vital Signs - 24 hr 02/26/20 16:44 Temperature 95.7 F L Pulse Rate 93 H Respiratory 18 Rate Blood Pressure 163/84 - Physical General Appearance: Yes: Within Normal Limits, No Apparent Distress, Nourished, Appropriately Dressed Respiratory: Yes: Within Normal Limits, Chest Non-Tender, Lungs Clear, Normal Breath Sounds, No Respiratory Distress, No Accessory Muscle Use Cardiology: Yes: Within Normal Limits, Regular Rhythm, Regular Rate Abdominal: Yes: Within Normal Limits, Normal Bowel Sounds, Non Tender, Flat, Soft Extremities: Yes: Normal Inspection, Non-Tender Neurological: Yes: Within Normal Limits, Fully Oriented, Alert, Normal Mood/Affect, Normal Response - Diagnostic (1) Abrasions of multiple sites Current Visit: No Status: Acute Comment: L [place]ER [place] (2) Alcohol abuse Current Visit: No Status: Acute (3) Alcohol dependence with uncomplicated withdrawal Current Visit: No Status: Acute (4) Hypertension Current Visit: No Status: Chronic Qualifiers: Hypertension type: unspecified Qualified Code(s): I10 - Essential (primary) hypertension (5) Varicose vein of leg Current Visit: No Status: Chronic Qualifiers: Varicose vein complication: unspecified Laterality: bilateral Qualified Code(s): I83.93 - Asymptomatic varicose veins of bilateral lower extremities Breathalyzer - Breathalyzer Breathalyzer: 0.100 Vital Signs - Vital Signs Vital signs refused: No Temperature: 95.7 F Pulse Rate: 93 Respiratory Rate: 18 Blood Pressure: 170/65 - Height Height: 1.8 m - Weight Weight: 170 kg - BMI Body Mass Index (BMI): 52.2 Urine Drug Screen - Test Device Lot number: [id number] Expiration date: 10/07/21 - Control Is test valid?: Yes - Results Drug screen NEGATIVE: Yes Inpatient Rehab Admission - Rehab Decision to Admit Inpatient rehab admission?: No
[2020-02-26] MEDS ORDERED: BISMUTH SUBSALICYLATE 524 MG/30 ML UD PO PRN (17:09)
[2020-02-26] MEDS ORDERED: chlordiazePOXIDE HCL 25 MG CAPSULE PO PRN (17:09)
[2020-02-26] MEDS ORDERED: ACETAMINOPHEN 325 MG TABLET (FP) PO PRN ×2 (17:09)
[2020-02-26] MEDS ORDERED: MAG HYDROX/AL HYDROX/SIMETH 30 ML UNIT-DOSE CUP PO PRN (17:09)
[2020-02-26] MEDS ORDERED: MENTHOL/PHENOL 1 EACH UD MM PRN (17:09)
[2020-02-26] MEDS ORDERED: MAGNESIUM HYDROX 2400MG/30ML ORAL SUSPENSION 30 ML CUP PO PRN (17:09)
[2020-02-26] MEDS ORDERED: IBUPROFEN 400 MG TABLET (FP) PO PRN (17:09)
[2020-02-26] MEDS ORDERED: NICOTINE POLACRILEX 2 MG GUM BUC PRN (17:09)
[2020-02-26] MEDS ORDERED: MAGNESIUM CITRATE 300 ML BOTTLE PO PRN (17:09)
[2020-02-26] MEDS ORDERED: METHOCARBAMOL 500 MG TABLET PO PRN (17:09)
[2020-02-26 18:53] VITALS: BMI 52.2
[2020-02-26] MEDS ORDERED: metoPROLOL SUCCINATE 25 MG TAB.SR.24H (FP) PO ONE (19:00)
[2020-02-26] MEDS ORDERED: ONDANSETRON *ODT* 4 MG TABLET SL ONE (19:00)
[2020-02-26] MEDS: hydrOXYzine PAMOATE 25 MG CAPSULE (FP) PO SCH ×2 (20:21→22:51)
[2020-02-26] MEDS: MELATONIN 5 MG TABLETS PO SCH (22:51)
[2020-02-26] MEDS: THIAMINE HCL 100 MG TABLET (FP) PO SCH (22:51)
[2020-02-26] MEDS: chlordiazePOXIDE HCL 25 MG CAPSULE PO SCH (22:51)
[2020-02-27] MEDS: hydrOXYzine PAMOATE 25 MG CAPSULE (FP) PO SCH ×5 (05:29→22:31)
[2020-02-27] MEDS: chlordiazePOXIDE HCL 25 MG CAPSULE PO SCH ×2 (05:29→10:24)
--- NOTE | 2020-02-27 09:09 | PN ---
Teaching Attending Note Name of Resident: David Zuniga ATTENDING PHYSICIAN STATEMENT I saw and evaluated the patient. I reviewed the resident's note and discussed the case with the resident. I agree with the resident's findings and plan as documented. SUBJECTIVE: OBJECTIVE: ASSESSMENT AND PLAN: Agree with resident's findings and plan for detox.
--- NOTE | 2020-02-27 09:34 | PN ---
[facility] CIWA - CIWA Score Nausea/Vomitin-No Nausea/No Vomiting Muscle Tremors: 2 Anxiety: 3 Agitation: 0-Normal Activity Paroxysmal Sweats: 3 Orientation: 0-Oriented Tacttile Disturbances: 1-Very Mild Itch/Numbness Auditory Disturbances: 0-None Visual Disturbances: 0-None Headache: 2-Mild CIWA-Ar Total Score: 11 S Progress Note (SOAP) Subjective: c/o anxiety, sweats, shakes, and headache. Objective: 02/27/20 09:32 Vital Signs 02/27/20 02/27/20 06:20 08:47 Temperature 98.2 F 98.0 F Pulse Rate 87 77 Respiratory 18 17 Rate Blood Pressure 139/79 117/65 O2 Sat by Pulse 100 Oximetry (%) Labs pending. 02/27/20 12:20 Laboratory Last Values WBC 3.5 K/mm3 (4.0-10.0) L 02/27/20 08:10 RBC 4.48 M/mm3 (4.00-5.60) 02/27/20 08:10 Hgb 14.1 GM/dL (11.7-16.9) 02/27/20 08:10 Hct 42.8 % (35.4-49) 02/27/20 08:10 MCV 95.5 fl (80-96) 02/27/20 08:10 MCH 31.3 pg (25.7-33.7) 02/27/20 08:10 MCHC 32.8 g/dl (32.0-35.9) 02/27/20 08:10 RDW 14.2 % (11.9-15.9) 02/27/20 08:10 Plt Count 108 K/MM3 (134-434) L 02/27/20 08:10 MPV 8.7 fl (7.5-11.1) 02/27/20 08:10 Sodium 132 mmol/L (136-145) L 02/27/20 08:10 Potassium 4.3 mmol/L (3.5-5.1) 02/27/20 08:10 Chloride 95 mmol/L (98-107) L 02/27/20 08:10 Carbon Dioxide 28 mmol/L (21-32) 02/27/20 08:10 Anion Gap 10 MMOL/L (8-16) 02/27/20 08:10 BUN 8.9 mg/dL (7-18) 02/27/20 08:10 Creatinine 0.8 mg/dL (0.55-1.3) 02/27/20 08:10 Est GFR (CKD-EPI)AfAm 103.44 02/27/20 08:10 Est GFR (CKD-EPI)NonAf 89.25 02/27/20 08:10 Random Glucose 69 mg/dL (74-106) L 02/27/20 08:10 Calcium 8.5 mg/dL (8.5-10.1) 02/27/20 08:10 Total Bilirubin 1.1 mg/dL (0.2-1) H 02/27/20 08:10 AST 120 U/L (15-37) H 02/27/20 08:10 ALT 82 U/L (13-61) H 02/27/20 08:10 Alkaline Phosphatase 75 U/L (45-117) 02/27/20 08:10 Total Protein 7.1 g/dl (6.4-8.2) 02/27/20 08:10 Albumin 3.1 g/dl (3.4-5.0) L 02/27/20 08:10 Syphilis Serology Non-reactive (NONREACTIVE) 02/27/20 08:10 Labs noted with elevated AST/ALT. Assessment: 02/27/20 09:33 AOX3, in no acute respiratory distress. Full ROM, ambulating in the unit. Withdrawal symptoms. Elevated liver enzymes. 02/27/20 12:21 Plan: change librium protocol to ativan protocol.
[2020-02-27] MEDS: PRENATAL VITAMINS W/ FOLIC ACID TABLET (FP) PO SCH (10:24)
[2020-02-27] MEDS: NICOTINE 7 MG/24 HOURS TOPICAL PATCH TD SCH (10:25)
[2020-02-27 11:06] LABS: HEMATOCRIT 42.8 % (35.4-49); HEMOGLOBIN 14.1 GM/dL (11.7-16.9); MCH 31.3 pg (25.7-33.7); MCHC 32.8 g/dl (32.0-35.9); MEAN CELL VOLUME 95.5 fl (80-96); MEAN PLT VOLUME 8.7 fl (7.5-11.1); PLATELET COUNT 108 K/MM3 (134-434); RBC 4.48 M/mm3 (4.00-5.60); RDW 14.2 % (11.9-15.9); WHITE BLOOD COUNT 3.5 K/mm3 (4.0-10.0)
[2020-02-27 11:33] LABS: ALBUMIN 3.1 g/dl (3.4-5.0); BILIRUBIN,TOTAL 1.1 mg/dL (0.2-1); BLOOD UREA NITROGEN 8.9 mg/dL (7-18); CALCIUM 8.5 mg/dL (8.5-10.1); CREATININE 0.8 mg/dL (0.55-1.3); POTASSIUM 4.3 mmol/L (3.5-5.1); TOT PROT 7.1 g/dl (6.4-8.2)
[2020-02-27] MEDS ORDERED: PNEUMOC 13-VAL CONJ-DIP CRM/PF 0.5 ML DISP.SYRIN IM ONE (12:00)
[2020-02-27] MEDS ORDERED: LORazepam 1 MG TABLET PO PRN (12:27)
[2020-02-27] MEDS: LORazepam 1 MG TABLET PO SCH ×2 (18:11→22:31)
[2020-02-27] MEDS: THIAMINE HCL 100 MG TABLET (FP) PO SCH (22:30)
[2020-02-27] MEDS: MELATONIN 5 MG TABLETS PO SCH (22:30)
[2020-02-28] MEDS ORDERED: chlordiazePOXIDE HCL 25 MG CAPSULE PO SCH (05:00)
[2020-02-28] MEDS: hydrOXYzine PAMOATE 25 MG CAPSULE (FP) PO SCH ×5 (05:37→22:40)
[2020-02-28] MEDS: LORazepam 1 MG TABLET PO SCH ×4 (05:37→22:40)
--- NOTE | 2020-02-28 09:42 | PN ---
[facility] CIWA - CIWA Score Nausea/Vomitin-No Nausea/No Vomiting Muscle Tremors: 2 Anxiety: 2 Agitation: 0-Normal Activity Paroxysmal Sweats: 2 Orientation: 0-Oriented Tacttile Disturbances: 0-None Auditory Disturbances: 0-None Visual Disturbances: 0-None Headache: 2-Mild CIWA-Ar Total Score: 8 BHS Progress Note (SOAP) Subjective: c/o headache, sweats, anxiety, and shakes. Objective: 02/28/20 09:41 Vital Signs 02/28/20 02/28/20 02/28/20 05:24 08:40 08:42 Temperature 98.1 F 98.0 F 96.9 F L Pulse Rate 81 85 99 H Respiratory 16 18 16 Rate Blood Pressure 132/74 118/73 142/90 O2 Sat by Pulse 99 Oximetry (%) Assessment: 02/28/20 09:41 AOX3, in no acute respiratory distress. Full ROM, ambulating in the unit. Withdrawal symptoms. Plan: continue detox.
[2020-02-28] MEDS: NICOTINE 7 MG/24 HOURS TOPICAL PATCH TD SCH (10:24)
[2020-02-28] MEDS: PRENATAL VITAMINS W/ FOLIC ACID TABLET (FP) PO SCH (10:24)
[2020-02-28] MEDS: THIAMINE HCL 100 MG TABLET (FP) PO SCH (22:40)
[2020-02-28] MEDS: MELATONIN 5 MG TABLETS PO SCH (22:41)
[2020-02-29] MEDS ORDERED: chlordiazePOXIDE HCL 10 MG CAPSULE PO PRN
[2020-02-29] MEDS ORDERED: chlordiazePOXIDE HCL 10 MG CAPSULE PO SCH (05:00)
[2020-02-29] MEDS: hydrOXYzine PAMOATE 25 MG CAPSULE (FP) PO SCH ×5 (05:46→22:30)
[2020-02-29] MEDS: LORazepam 0.5 MG TABLET PO SCH ×4 (05:47→22:30)
--- NOTE | 2020-02-29 10:18 | PN ---
S CIWA - CIWA Score Nausea/Vomitin-No Nausea/No Vomiting Muscle Tremors: 1-None Visible, but [place] Anxiety: 2 Agitation: 1-Slight > Activity Paroxysmal Sweats: 1-Minimal Palms Moist Orientation: 0-Oriented Tacttile Disturbances: 0-None Auditory Disturbances: 0-None Visual Disturbances: 0-None Headache: 1-Very Mild CIWA-Ar Total Score: 6 [facility] Progress Note (SOAP) Subjective: 70 years old male was admitted on 02/26/20 for alcohol withdrawal sx management treating with ativan detox regiment feeling better today sitting on the edge of the bed eating breakfast in room discussing aftercare with staff mr cassandra santos go to [facility] for alcohol abuse treatment Objective: 02/29/20 10:20 Vital Signs - 24 hr 02/28/20 02/28/20 02/28/20 12:41 16:40 20:39 Temperature 97.1 F L 97.5 F L 97.6 F Pulse Rate 108 H 104 H 93 H Respiratory 18 16 18 Rate Blood Pressure 126/78 150/90 125/77 O2 Sat by Pulse 100 97 Oximetry (%) 02/29/20 02/29/20 05:39 08:27 Temperature 97.0 F L 97.1 F L Pulse Rate 75 97 H Respiratory 18 18 Rate Blood Pressure 125/73 155/94 O2 Sat by Pulse 99 Oximetry (%) Laboratory Tests 02/26/20 02/27/20 02/27/20 18:45 08:10 08:10 WBC 3.5 L RBC 4.48 Hgb 14.1 Hct 42.8 MCV 95.5 MCH 31.3 MCHC 32.8 RDW 14.2 Plt Count 108 L MPV 8.7 Sodium Potassium Chloride Carbon Dioxide Anion Gap BUN Creatinine Est GFR (CKD-EPI)AfAm Est GFR (CKD-EPI)NonAf Random Glucose Calcium Total Bilirubin AST ALT Alkaline Phosphatase Total Protein Albumin Syphilis Serology Non-reactive COVID-19 ([facility]) Not detected 02/27/20 08:10 WBC RBC Hgb Hct MCV MCH MCHC RDW Plt Count MPV Sodium 132 L Potassium 4.3 Chloride 95 L Carbon Dioxide 28 Anion Gap 10 BUN 8.9 Creatinine 0.8 Est GFR (CKD-EPI)AfAm 103.44 Est GFR (CKD-EPI)NonAf 89.25 Random Glucose 69 L Calcium 8.5 Total Bilirubin 1.1 H AST 120 H ALT 82 H Alkaline Phosphatase 75 Total Protein 7.1 Albumin 3.1 L Syphilis Serology COVID-19 ([facility]) alcohol induced ast elevation mr trujillo will follow up with [facility] aftercare treatment facility 02/29/20 10:22 bp elevation resume home medication amlodipine Assessment: 02/29/20 10:22 alcohol withdrawal hypertension Plan: ativan regiment amlodipine 5 mg po daily
[2020-02-29] MEDS: PRENATAL VITAMINS W/ FOLIC ACID TABLET (FP) PO SCH (10:28)
[2020-02-29] MEDS: NICOTINE 7 MG/24 HOURS TOPICAL PATCH TD SCH (10:28)
[2020-02-29] MEDS ORDERED: amLODIPine BESYLATE 5 MG TABLET (FP) PO SCH (10:30)
[2020-02-29] MEDS: THIAMINE HCL 100 MG TABLET (FP) PO SCH (22:30)
[2020-02-29] MEDS: MELATONIN 5 MG TABLETS PO SCH (22:30)
[2020-03-01] MEDS ORDERED: LORazepam 0.5 MG TABLET PO PRN
[2020-03-01] MEDS ORDERED: chlordiazePOXIDE HCL 10 MG CAPSULE PO SCH (05:00)
[2020-03-01] MEDS ORDERED: LORazepam 0.5 MG TABLET PO ONE (05:00)
[2020-03-01] MEDS: hydrOXYzine PAMOATE 25 MG CAPSULE (FP) PO SCH (05:25)
[2020-03-01 06:45] VITALS: BP 155/89; PULSE 82; TEMP 97.7
--- NOTE | 2020-03-01 14:08 | DS ---
[facility] Detox Discharge Summary Admission Date: 02/26/20 Discharge Date: 03/01/20 - History Present History: Alcohol Dependence Additional Comments: 70 years old male was admitted on 02/26/20 for alcohol withdrawal sx management treated with ativan detox regiment mr khoury has completed the ativan regiment and is tolerated well General Appearance: Yes: Within Normal Limits, No Apparent Distress, Nourished, Appropriately Dressed Respiratory: Yes: Within Normal Limits, Chest Non-Tender, Lungs Clear, Normal Breath Sounds, No Respiratory Distress, No Accessory Muscle Use Cardiology: Yes: Within Normal Limits, Regular Rhythm, Regular Rate Abdominal: Yes: Within Normal Limits, Normal Bowel Sounds, Non Tender, Flat, Soft Extremities: Yes: Normal Inspection, Non-Tender Neurological: Yes: Within Normal Limits, Fully Oriented, Alert, Normal Mood/Affect, Normal Response Pertinent Past History: time for discharge 60 minutes writer producer has called counselor manager custom for possible transportation writer producer has coordinated with nursing manger to facilitate the process transportation has been arranged mr trujillo will follow up with [facility] for medical mental and alcohol abuse treatment - Physical Exam Results Vital Signs: Vital Signs Temperature 97.7 F 03/01/20 05:17 Pulse Rate 82 03/01/20 05:17 Respiratory Rate 18 03/01/20 05:17 Blood Pressure 155/89 03/01/20 05:17 O2 Sat by Pulse Oximetry (%) 98 03/01/20 05:17 Pertinent Admission Physical Exam Findings: alcohol withdrawal Laboratory Tests 02/26/20 02/27/20 02/27/20 18:45 08:10 08:10 WBC 3.5 L RBC 4.48 Hgb 14.1 Hct 42.8 MCV 95.5 MCH 31.3 MCHC 32.8 RDW 14.2 Plt Count 108 L MPV 8.7 Sodium Potassium Chloride Carbon Dioxide Anion Gap BUN Creatinine Est GFR (CKD-EPI)AfAm Est GFR (CKD-EPI)NonAf Random Glucose Calcium Total Bilirubin AST ALT Alkaline Phosphatase Total Protein Albumin Syphilis Serology Non-reactive COVID-19 ([facility]) Not detected 02/27/20 08:10 WBC RBC Hgb Hct MCV MCH MCHC RDW Plt Count MPV Sodium 132 L Potassium 4.3 Chloride 95 L Carbon Dioxide 28 Anion Gap 10 BUN 8.9 Creatinine 0.8 Est GFR (CKD-EPI)AfAm 103.44 Est GFR (CKD-EPI)NonAf 89.25 Random Glucose 69 L Calcium 8.5 Total Bilirubin 1.1 H AST 120 H ALT 82 H Alkaline Phosphatase 75 Total Protein 7.1 Albumin 3.1 L Syphilis Serology COVID-19 ([facility]) mr khoury will follow up with [facility] for ast elevation - Treatment Hospital Course: Detox Protocol Followed, Detoxed Safely, Responded well, Discharged Condition Good, Rehab Referral Accepted Patient has Accepted a Rehab Referral to: [facility] - Medication Discharge Medications: Ambulatory Orders Amlodipine Besylate 5 mg PO DAILY 12/26/17 - Diagnosis (1) Substance induced mood disorder Status: Suspected (2) Alcohol dependence with uncomplicated withdrawal Status: Acute (3) Hypertension Status: Chronic Qualifiers: Hypertension type: essential hypertension Qualified Code(s): I10 - Essential (primary) hypertension - AMA Did Patient Leave Against Medical Advice: No CIWA Score - CIWA Score Nausea/Vomitin-No Nausea/No Vomiting Muscle Tremors: 1-None Visible, but [place] Anxiety: 1-Mildly Anxious Agitation: 1-Slight > Activity Paroxysmal Sweats: No Perspiration Orientation: 0-Oriented Tacttile Disturbances: 0-None Auditory Disturbances: 0-None Visual Disturbances: 0-None Headache: 0-None Present CIWA-Ar Total Score: 3
[2020-03-02] MEDS ORDERED: chlordiazePOXIDE HCL 10 MG CAPSULE PO ONE (05:00)
== END 2020-03-01 09:47 | disposition home or self-care (01) | DRG 897 ==
LOC: YASAS 14:45 → Y3N 18:33
PROVIDERS: ADMIT Allergy & Immunology; ATTEND Allergy & Immunology
PROC: HZ2ZZZZ Detoxification Services for Substance Abuse Treatment (ICD-10-PCS; principal; 2020-02-26)
DX: F10.230 Alcohol dependence with withdrawal, uncomplicated (principal); F17.211 Nicotine dependence, cigarettes, in remission; I10 Essential (primary) hypertension; I83.93 Asymptomatic varicose veins of bilateral lower extremities; R74.0 Nonspecific elevation of levels of transaminase and lactic acid dehydrogenase [LDH]; Z96.0 Presence of urogenital implants; Z98.890 Other specified postprocedural states
CPT/HCPCS: 36415; 80053; 85027; 86780; Q0162; U0003

== ENCOUNTER 2021-02-10 11:29 | Inpatient (IN) | payer OTHER, BC ==
[2021-02-10 12:19] VITALS: BMI 23.1
[2021-02-10] MEDS ORDERED: ONDANSETRON *ODT* 4 MG TABLET SL PRN (14:17)
[2021-02-10] MEDS ORDERED: diazePAM 5 MG TABLET PO PRN (14:17)
[2021-02-10] MEDS ORDERED: IBUPROFEN 400 MG TABLET (FP) PO PRN (14:17)
[2021-02-10] MEDS ORDERED: MAGNESIUM CITRATE 300 ML BOTTLE PO PRN (14:17)
[2021-02-10] MEDS ORDERED: ACETAMINOPHEN 325 MG TABLET (FP) PO PRN ×2 (14:17)
[2021-02-10] MEDS ORDERED: METHOCARBAMOL 500 MG TABLET PO PRN (14:17)
[2021-02-10] MEDS ORDERED: MENTHOL/PHENOL 1 EACH UD MM PRN (14:17)
[2021-02-10] MEDS ORDERED: MAGNESIUM HYDROX 2400MG/30ML ORAL SUSPENSION 30 ML CUP PO PRN (14:17)
[2021-02-10] MEDS ORDERED: MAG HYDROX/AL HYDROX/SIMETH 30 ML UNIT-DOSE CUP PO PRN (14:17)
[2021-02-10] MEDS ORDERED: BISMUTH SUBSALICYLATE 262 MG/15 ML BTL PO PRN (14:17)
[2021-02-10] MEDS: PRENATAL VITAMINS W/ FOLIC ACID TABLET (FP) PO SCH ×2 (15:16→15:42)
[2021-02-10 15:45] LABS: HEMATOCRIT 41.6 % (35.4-49); HEMOGLOBIN 13.9 GM/dL (11.7-16.9); MCH 28.9 pg (25.7-33.7); MCHC 33.3 g/dl (32.0-35.9); MEAN CELL VOLUME 86.6 fl (80-96); MEAN PLT VOLUME 8.3 fl (7.5-11.1); PLATELET COUNT 131 10^3/uL (134-434); RDW 18.8 % (11.9-15.9); WHITE BLOOD COUNT 4.7 K/mm3 (4.0-10.0)
[2021-02-10 15:52] LABS: CALCIUM 8.9 mg/dL (8.5-10.1)
[2021-02-10 15:53] LABS: ALBUMIN 3.6 g/dl (3.4-5.0); BLOOD UREA NITROGEN 18.4 mg/dL (7-18)
[2021-02-10 15:56] LABS: CREATININE 0.9 mg/dL (0.55-1.3)
[2021-02-10 15:57] LABS: BILIRUBIN,TOTAL 0.4 mg/dL (0.2-1); TOT PROT 8.1 g/dl (6.4-8.2)
[2021-02-10] MEDS: hydrOXYzine PAMOATE 25 MG CAPSULE (FP) PO SCH ×2 (18:09→22:41)
[2021-02-10] MEDS: diazePAM 5 MG TABLET PO SCH (22:41)
[2021-02-10] MEDS: THIAMINE HCL 100 MG TABLET (FP) PO SCH (22:41)
[2021-02-10] MEDS: MELATONIN 5 MG TABLETS PO SCH (22:41)
[2021-02-11] MEDS: hydrOXYzine PAMOATE 25 MG CAPSULE (FP) PO SCH ×5 (06:00→22:49)
[2021-02-11] MEDS: diazePAM 5 MG TABLET PO SCH ×4 (06:00→22:49)
[2021-02-11] MEDS: amLODIPine BESYLATE 5 MG TABLET (FP) PO SCH (10:06)
[2021-02-11] MEDS: PRENATAL VITAMINS W/ FOLIC ACID TABLET (FP) PO SCH (10:06)
[2021-02-11] MEDS: THIAMINE HCL 100 MG TABLET (FP) PO SCH (22:49)
[2021-02-11] MEDS: MELATONIN 5 MG TABLETS PO SCH (22:49)
[2021-02-12] MEDS: hydrOXYzine PAMOATE 25 MG CAPSULE (FP) PO SCH ×5 (05:32→22:22)
[2021-02-12] MEDS: diazePAM 5 MG TABLET PO SCH ×3 (05:32→22:22)
[2021-02-12 09:17] LABS: BLOOD UREA NITROGEN 16.3 mg/dL (7-18); CALCIUM 8.7 mg/dL (8.5-10.1)
[2021-02-12 09:20] LABS: CREATININE 0.8 mg/dL (0.55-1.3)
[2021-02-12 09:22] LABS: TOT PROT 6.8 g/dl (6.4-8.2)
[2021-02-12] MEDS: PRENATAL VITAMINS W/ FOLIC ACID TABLET (FP) PO SCH (10:32)
[2021-02-12] MEDS: amLODIPine BESYLATE 5 MG TABLET (FP) PO SCH (10:32)
[2021-02-12] MEDS: MELATONIN 5 MG TABLETS PO SCH (22:22)
[2021-02-12] MEDS: THIAMINE HCL 100 MG TABLET (FP) PO SCH (22:22)
[2021-02-13] MEDS: hydrOXYzine PAMOATE 25 MG CAPSULE (FP) PO SCH ×5 (05:13→22:28)
[2021-02-13] MEDS: diazePAM 5 MG TABLET PO SCH ×2 (07:07→17:47)
[2021-02-13] MEDS: amLODIPine BESYLATE 5 MG TABLET (FP) PO SCH (10:37)
[2021-02-13] MEDS: PRENATAL VITAMINS W/ FOLIC ACID TABLET (FP) PO SCH (10:37)
[2021-02-13] MEDS: THIAMINE HCL 100 MG TABLET (FP) PO SCH (22:28)
[2021-02-13] MEDS: MELATONIN 5 MG TABLETS PO SCH (22:28)
[2021-02-14] MEDS: hydrOXYzine PAMOATE 25 MG CAPSULE (FP) PO SCH (05:46)
[2021-02-14] MEDS ORDERED: diazePAM 5 MG TABLET PO ONE (06:00)
[2021-02-14 09:28] VITALS: BP 130/76; PULSE 102; TEMP 96.9
== END 2021-02-14 09:40 | disposition home or self-care (01) | DRG 897 ==
LOC: YASAS 11:29 → Y3N 13:00 → UNDOADMIN 13:00
PROVIDERS: ADMIT Allergy & Immunology; ATTEND Allergy & Immunology
PROC: HZ2ZZZZ Detoxification Services for Substance Abuse Treatment (ICD-10-PCS; principal; 2021-02-10)
DX: F10.230 Alcohol dependence with withdrawal, uncomplicated (principal); F10.282 Alcohol dependence with alcohol-induced sleep disorder; D69.6 Thrombocytopenia, unspecified; E78.5 Hyperlipidemia, unspecified; I10 Essential (primary) hypertension; I83.93 Asymptomatic varicose veins of bilateral lower extremities; R73.9 Hyperglycemia, unspecified; Z87.891 Personal history of nicotine dependence; Z91.81 History of falling; Z98.890 Other specified postprocedural states
CPT/HCPCS: 36415; 80053; 82947; 85027; 86780; C9803; U0003; U0005

== ENCOUNTER 2021-11-17 12:06 | Inpatient (IN) | payer OTHER ==
[2021-11-17] MEDS ORDERED: LOPERAMIDE HCL 2 MG CAPSULE PO PRN (13:04)
[2021-11-17] MEDS ORDERED: IBUPROFEN 400 MG TABLET (FP) PO PRN (13:04)
[2021-11-17] MEDS ORDERED: MAGNESIUM CITRATE 300 ML BOTTLE PO PRN (13:04)
[2021-11-17] MEDS ORDERED: diazePAM 5 MG TABLET PO PRN (13:04)
[2021-11-17] MEDS ORDERED: MAGNESIUM HYDROX 2400MG/30ML ORAL SUSPENSION 30 ML CUP PO PRN (13:04)
[2021-11-17] MEDS ORDERED: ONDANSETRON *ODT* 4 MG TABLET SL PRN (13:04)
[2021-11-17] MEDS ORDERED: BISMUTH SUBSALICYLATE 262 MG/15 ML BTL PO PRN (13:04)
[2021-11-17] MEDS ORDERED: METHOCARBAMOL 500 MG TABLET PO PRN (13:04)
[2021-11-17] MEDS ORDERED: BENZOCAINE/MENTHOL (CHLORASEPTIC ) LOZENGE MM PRN (13:04)
[2021-11-17] MEDS ORDERED: MAG HYDROX/AL HYDROX/SIMETH 30 ML UNIT-DOSE CUP PO PRN (13:04)
[2021-11-17] MEDS ORDERED: ACETAMINOPHEN 325 MG TABLET (FP) PO PRN ×2 (13:04)
[2021-11-17] MEDS ORDERED: DICYCLOMINE HCL 10 MG CAPSULE PO PRN (13:04)
[2021-11-17] MEDS ORDERED: PRENATAL VITAMINS W/ FOLIC ACID TABLET (FP) PO SCH (13:15)
[2021-11-17 13:34] VITALS: BMI 23.6
[2021-11-17] MEDS ORDERED: amLODIPine BESYLATE 5 MG TABLET (FP) PO SCH (14:00)
[2021-11-17] MEDS ORDERED: hydrOXYzine PAMOATE 25 MG CAPSULE (FP) PO PRN (14:00)
[2021-11-17 17:21] LABS: HEMATOCRIT 39.1 % (35.4-49); HEMOGLOBIN 12.8 GM/dL (11.7-16.9); MCH 33.1 pg (25.7-33.7); MCHC 32.8 g/dl (32.0-35.9); MEAN CELL VOLUME 101.1 fl (80-96); RBC 3.87 M/mm3 (4.00-5.60); RDW 14.3 % (11.9-15.9); WHITE BLOOD COUNT 4.1 K/mm3 (4.0-10.0)
[2021-11-17 17:31] LABS: ALBUMIN 3.7 g/dl (3.4-5.0); BLOOD UREA NITROGEN 12.3 mg/dL (7-18); CREATININE 0.6 mg/dL (0.55-1.3)
[2021-11-17 17:33] LABS: BILIRUBIN,TOTAL 1.3 mg/dL (0.2-1); TOT PROT 7.7 g/dl (6.4-8.2)
[2021-11-17] MEDS: diazePAM 5 MG TABLET PO SCH ×2 (17:52→22:51)
[2021-11-17 20:00] LABS: MEAN PLT VOLUME 9.5 fl (7.5-11.1); PLATELET COUNT 68 10^3/uL (134-434)
[2021-11-17] MEDS ORDERED: THIAMINE HCL 100 MG TABLET (FP) PO SCH (22:00)
[2021-11-17] MEDS ORDERED: MELATONIN 5 MG TABLETS PO SCH (22:00)
[2021-11-18 00:51] VITALS: BP 166/93; PULSE 115; TEMP 97.1
[2021-11-18] MEDS: diazePAM 5 MG TABLET PO SCH (07:14)
[2021-11-19] MEDS ORDERED: diazePAM 5 MG TABLET PO SCH (06:00)
[2021-11-20] MEDS ORDERED: diazePAM 5 MG TABLET PO SCH (06:00)
[2021-11-21] MEDS ORDERED: diazePAM 5 MG TABLET PO ONE (06:00)
== END 2021-11-18 07:20 | disposition short-term general hospital (02) | DRG 897 ==
LOC: YASAS 12:06 → Y3N 13:33
PROVIDERS: ADMIT Allergy & Immunology; ATTEND Surgery
PROC: HZ2ZZZZ Detoxification Services for Substance Abuse Treatment (ICD-10-PCS; principal; 2021-11-17)
DX: F10.230 Alcohol dependence with withdrawal, uncomplicated (principal); I10 Essential (primary) hypertension; N40.0 Benign prostatic hyperplasia without lower urinary tract symptoms; Z87.891 Personal history of nicotine dependence; R26.89 Other abnormalities of gait and mobility; Z91.81 History of falling; W19.XXXA Unspecified fall, initial encounter; Y92.230 Patient room in hospital as the place of occurrence of the external cause
CPT/HCPCS: 36415; 70450-TC; 80053; 82728; 83036; 83540; 83550; 84443; 85027; 86780; 93005; 93010; C9803-CS; U0003; U0005

== ENCOUNTER 2021-11-18 02:09 | Inpatient (IN) | payer OTHER ==
[2021-11-18] MEDS ORDERED: chlordiazePOXIDE HCL 25 MG CAPSULE PO ONE (02:21)
[2021-11-18] MEDS ORDERED: chlordiazePOXIDE HCL 25 MG CAPSULE ONE (02:24)
[2021-11-18] MEDS ORDERED: diazePAM CARPU-JECT 10 MG/2 ML DISP.SYRIN IVPUSH ONE (03:21)
[2021-11-18] MEDS ORDERED: diazePAM CARPU-JECT 10 MG/2 ML DISP.SYRIN ONE (03:29)
[2021-11-18 04:05] LABS: BASO % 1.5 % (0-2.0); EOS % 0.8 % (0-4.5); HEMOGLOBIN 11.3 GM/dL (11.7-16.9); MCH 33.6 pg (25.7-33.7); MCHC 34.2 g/dl (32.0-35.9); MEAN PLT VOLUME 8.5 fl (7.5-11.1); MONO % 9.4 % (3.8-10.2); NEUT % 70.3 % (42.8-82.8); PLATELET COUNT 51 10^3/uL (134-434); RBC 3.37 M/mm3 (4.00-5.60); RDW 13.7 % (11.9-15.9); WHITE BLOOD COUNT 3.6 K/mm3 (4.0-10.0)
[2021-11-18 04:26] LABS: ALBUMIN 3.2 g/dl (3.4-5.0); BLOOD UREA NITROGEN 13.5 mg/dL (7-18); CALCIUM 8.9 mg/dL (8.5-10.1)
[2021-11-18 04:29] LABS: CREATININE 0.6 mg/dL (0.55-1.3)
[2021-11-18 04:31] LABS: BILIRUBIN,TOTAL 1.4 mg/dL (0.2-1); TOT PROT 6.8 g/dl (6.4-8.2)
[2021-11-18 09:11] LABS: MAGNESIUM 1.4 mg/dL (1.8-2.4)
[2021-11-18 09:14] LABS: PHOSPHOROUS 2.8 mg/dL (2.5-4.9)
[2021-11-18 09:20] LABS: EPI CELLS 6 /uL (0-25.1); HYALINE CASTS 1 /uL (0-3.1); PH,URINE 6.5 (5.0-8.0); URINE APPEARANCE CLEAR; URINE BACTERIA 15 /uL (0-1359); URINE BILIRUBIN NEGATIVE (NEGATIVE); URINE COLOR DK YELLOW; URINE GLUCOSE (UA) NEGATIVE (NEGATIVE); URINE KETONE NEGATIVE (NEGATIVE); URINE LEUK ESTERASE NEGATIVE (NEGATIVE); URINE NITRITE NEGATIVE (NEGATIVE); URINE PROTEIN 1+ (NEGATIVE); URINE RBC 26 /uL (0-23.9); URINE WBC 17 /uL (0-25.8)
[2021-11-18 09:26] LABS: COCAINE, UR NEGATIVE (NEGATIVE); OPIATES, URI NEGATIVE (NEGATIVE); URINE AMPHETAMINES NEGATIVE (NEGATIVE); URINE BARBITURATES NEGATIVE (NEGATIVE)
[2021-11-18 09:27] LABS: METHADONE, UR NEGATIVE (NEGATIVE); PHENCYCLIDINE,URINE NEGATIVE (NEGATIVE)
[2021-11-18 09:28] LABS: URINE BENZODIAZEPINES POSITIVE (NEGATIVE)
[2021-11-18] MEDS ORDERED: LORazepam 1 MG TABLET PO ONE (09:33)
[2021-11-18] MEDS: THIAMINE HCL 200 MG/2 ML VIAL IVPB SCH (10:33)
[2021-11-18] MEDS: KCL 10 MEQ IVPB 10 MEQ/100 ML INFUS.BAG IVPB SCH ×3 (10:33→11:38)
[2021-11-18] MEDS ORDERED: ASPIRIN 81 MG CHEWABLE TABLETS PO ONE (10:40)
[2021-11-18] MEDS ORDERED: SODIUM PHOSPHATE - 30 MM in DEXTROSE 5%-WATER - 250 ML IVPB ONE (10:48)
[2021-11-18] MEDS ORDERED: LORazepam 2 MG TABLET PO SCH (11:00)
[2021-11-18] MEDS ORDERED: CLOPIDOGREL BISULFATE 300 MG TABLET PO ONE ×2 (11:20→12:00)
[2021-11-18] MEDS ORDERED: HEPARIN NA (PORCINE) 5,000 UNITS/ML 1ML VIAL IVPUSH PRN ×2 (11:23)
[2021-11-18] MEDS ORDERED: HEPARIN INFUSION - 25,000 UNITS/500 ML INFUS.BAG IVPB SCH (11:30)
[2021-11-18] MEDS ORDERED: metoPROLOL SUCCINATE 25 MG TAB.SR.24H (FP) PO ONE (11:35)
[2021-11-18] MEDS ORDERED: MAGNESIUM SULF 50% (8.12 MEQ/2 ML-1 GM VIAL) IVPB ONE (11:45)
[2021-11-18] MEDS: LORazepam 1 MG TABLET PO SCH ×2 (17:14→22:35)
[2021-11-18] MEDS: ATORVASTATIN CA 80 MG TABLET (FP) PO SCH (22:35)
[2021-11-19] MEDS: LORazepam 1 MG TABLET PO SCH (05:44)
[2021-11-19 07:30] LABS: BASO % 1.4 % (0-2.0); EOS % 2.1 % (0-4.5); HEMATOCRIT 34.9 % (35.4-49); HEMOGLOBIN 11.5 GM/dL (11.7-16.9); LYMPH % 35.2 % (8-40); MCH 33.4 pg (25.7-33.7); MEAN CELL VOLUME 101.1 fl (80-96); MEAN PLT VOLUME 10.3 fl (7.5-11.1); NEUT % 52.3 % (42.8-82.8); PLATELET COUNT 53 10^3/uL (134-434); RBC 3.46 M/mm3 (4.00-5.60); RDW 13.6 % (11.9-15.9)
[2021-11-19 07:42] LABS: CALCIUM 8.7 mg/dL (8.5-10.1)
[2021-11-19 07:43] LABS: ALBUMIN 2.9 g/dl (3.4-5.0); BLOOD UREA NITROGEN 17.3 mg/dL (7-18); MAGNESIUM 1.9 mg/dL (1.8-2.4)
[2021-11-19 07:46] LABS: CREATININE 0.5 mg/dL (0.55-1.3); PHOSPHOROUS 2.5 mg/dL (2.5-4.9)
[2021-11-19 07:48] LABS: BILIRUBIN,TOTAL 2.6 mg/dL (0.2-1); TOT PROT 6.3 g/dl (6.4-8.2)
[2021-11-19] MEDS: THIAMINE HCL 200 MG/2 ML VIAL IVPB SCH (09:36)
[2021-11-19] MEDS: FOLIC ACID 1 MG TABLET (FP) PO SCH (09:37)
[2021-11-19] MEDS: LOSARTAN POTASSIUM 50 MG TABLET PO SCH (09:37)
[2021-11-19] MEDS: ENOXAPARIN NA (PORCINE) 40 MG/0.4 ML DISP.SYRIN SQ SCH (09:37)
[2021-11-19] MEDS: POTASSIUM CHLORIDE TABS 20 MEQ TABLET.ER (FP) PO SCH (17:41)
[2021-11-19] MEDS: LORazepam 1 MG TABLET PO PRN (20:49)
[2021-11-19] MEDS: ATORVASTATIN CA 80 MG TABLET (FP) PO SCH (21:05)
[2021-11-20] MEDS: LORazepam 1 MG TABLET PO PRN ×2 (01:21→20:08)
[2021-11-20] MEDS: LORazepam 1 MG TABLET PO SCH ×4 (06:01→23:45)
[2021-11-20 09:13] LABS: HEMATOCRIT 36.4 % (35.4-49); HEMOGLOBIN 12.3 GM/dL (11.7-16.9); MCH 33.6 pg (25.7-33.7); MCHC 33.8 g/dl (32.0-35.9); MEAN CELL VOLUME 99.4 fl (80-96); MEAN PLT VOLUME 10.8 fl (7.5-11.1); PLATELET COUNT 63 10^3/uL (134-434); RBC 3.67 M/mm3 (4.00-5.60); RDW 14.2 % (11.9-15.9); WHITE BLOOD COUNT 5.7 K/mm3 (4.0-10.0)
[2021-11-20 09:34] LABS: ALBUMIN 3.1 g/dl (3.4-5.0); CALCIUM 9.3 mg/dL (8.5-10.1)
[2021-11-20 09:37] LABS: CREATININE 0.7 mg/dL (0.55-1.3)
[2021-11-20 09:39] LABS: BILIRUBIN,TOTAL 2.6 mg/dL (0.2-1); TOT PROT 6.8 g/dl (6.4-8.2)
[2021-11-20] MEDS: LOSARTAN POTASSIUM 50 MG TABLET PO SCH (10:37)
[2021-11-20] MEDS: FOLIC ACID 1 MG TABLET (FP) PO SCH (10:37)
[2021-11-20] MEDS: ENOXAPARIN NA (PORCINE) 40 MG/0.4 ML DISP.SYRIN SQ SCH (10:38)
[2021-11-20] MEDS: THIAMINE HCL 200 MG/2 ML VIAL IVPB SCH (10:38)
[2021-11-20] MEDS: POTASSIUM CHLORIDE TABS 20 MEQ TABLET.ER (FP) PO SCH (10:44)
[2021-11-20] MEDS: ASPIRIN COATED 81 MG TABLET.EC PO SCH (17:07)
[2021-11-20] MEDS ORDERED: LORazepam 2 MG/ML SDV VIAL IVPUSH ONE (20:25)
[2021-11-20] MEDS: ATORVASTATIN CA 80 MG TABLET (FP) PO SCH (21:40)
[2021-11-21] MEDS ORDERED: LORazepam 0.5 MG TABLET PO PRN
[2021-11-21] MEDS: LORazepam 0.5 MG TABLET PO SCH ×4 (04:52→22:20)
[2021-11-21 07:38] LABS: BASO % 0.8 % (0-2.0); EOS % 0.6 % (0-4.5); HEMATOCRIT 37.5 % (35.4-49); HEMOGLOBIN 12.4 GM/dL (11.7-16.9); LYMPH % 23.4 % (8-40); MCH 33.3 pg (25.7-33.7); MCHC 33.1 g/dl (32.0-35.9); MEAN CELL VOLUME 100.4 fl (80-96); MEAN PLT VOLUME 10.6 fl (7.5-11.1); MONO % 10.4 % (3.8-10.2); NEUT % 64.8 % (42.8-82.8); PLATELET COUNT 80 10^3/uL (134-434); RBC 3.74 M/mm3 (4.00-5.60); RDW 13.9 % (11.9-15.9); WHITE BLOOD COUNT 6.6 K/mm3 (4.0-10.0)
[2021-11-21 08:15] LABS: BLOOD UREA NITROGEN 26.5 mg/dL (7-18); CALCIUM 9.1 mg/dL (8.5-10.1)
[2021-11-21 08:16] LABS: ALBUMIN 3.1 g/dl (3.4-5.0); MAGNESIUM 1.9 mg/dL (1.8-2.4)
[2021-11-21 08:19] LABS: BILIRUBIN,TOTAL 2.7 mg/dL (0.2-1); TOT PROT 6.9 g/dl (6.4-8.2)
[2021-11-21 08:24] LABS: CREATININE 0.8 mg/dL (0.55-1.3)
[2021-11-21] MEDS ORDERED: LORazepam 2 MG/ML SDV VIAL IVPUSH ONE (08:47)
[2021-11-21] MEDS: FOLIC ACID 1 MG TABLET (FP) PO SCH (10:11)
[2021-11-21] MEDS: ASPIRIN COATED 81 MG TABLET.EC PO SCH (10:12)
[2021-11-21] MEDS: LOSARTAN POTASSIUM 50 MG TABLET PO SCH (10:12)
[2021-11-21] MEDS: ENOXAPARIN NA (PORCINE) 40 MG/0.4 ML DISP.SYRIN SQ SCH (10:13)
[2021-11-21] MEDS: POTASSIUM CHLORIDE TABS 20 MEQ TABLET.ER (FP) PO SCH (10:13)
[2021-11-21] MEDS: THIAMINE HCL 200 MG/2 ML VIAL IVPB SCH ×2 (10:13→22:21)
[2021-11-21] MEDS: ATORVASTATIN CA 80 MG TABLET (FP) PO SCH (22:20)
[2021-11-22] MEDS: LORazepam 2 MG/ML SDV VIAL IVPUSH PRN ×3 (02:17→22:08)
[2021-11-22] MEDS ORDERED: LORazepam 0.5 MG TABLET PO ONE (05:00)
[2021-11-22 07:29] LABS: HEMATOCRIT 37.7 % (35.4-49); HEMOGLOBIN 12.4 GM/dL (11.7-16.9); MCH 33.5 pg (25.7-33.7); MCHC 32.9 g/dl (32.0-35.9); MEAN CELL VOLUME 101.8 fl (80-96); MEAN PLT VOLUME 10.7 fl (7.5-11.1); MONO % 13.4 % (3.8-10.2); NEUT % 66.6 % (42.8-82.8); PLATELET COUNT 89 10^3/uL (134-434); RDW 14.2 % (11.9-15.9); WHITE BLOOD COUNT 6.9 K/mm3 (4.0-10.0)
[2021-11-22 07:48] LABS: CALCIUM 9.1 mg/dL (8.5-10.1)
[2021-11-22 07:49] LABS: ALBUMIN 3.1 g/dl (3.4-5.0); BLOOD UREA NITROGEN 29.6 mg/dL (7-18); MAGNESIUM 1.8 mg/dL (1.8-2.4)
[2021-11-22 07:52] LABS: CREATININE 0.7 mg/dL (0.55-1.3); PHOSPHOROUS 3.9 mg/dL (2.5-4.9)
[2021-11-22 07:53] LABS: BILIRUBIN,TOTAL 2.4 mg/dL (0.2-1); TOT PROT 6.9 g/dl (6.4-8.2)
[2021-11-22] MEDS ORDERED: LORazepam 1 MG TABLET PO PRN (11:09)
[2021-11-22] MEDS: ASPIRIN COATED 81 MG TABLET.EC PO SCH (11:15)
[2021-11-22] MEDS: FOLIC ACID 1 MG TABLET (FP) PO SCH (11:15)
[2021-11-22] MEDS: THIAMINE HCL 200 MG/2 ML VIAL IVPB SCH ×2 (11:15→22:07)
[2021-11-22] MEDS: LOSARTAN POTASSIUM 50 MG TABLET PO SCH (11:15)
[2021-11-22] MEDS: CARVEDILOL 6.25 MG TABLET (FP) PO SCH ×2 (14:01→22:07)
[2021-11-22] MEDS: ATORVASTATIN CA 80 MG TABLET (FP) PO SCH (22:07)
[2021-11-23 07:31] LABS: BASO % 0.9 % (0-2.0); EOS % 1.5 % (0-4.5); HEMATOCRIT 38.2 % (35.4-49); HEMOGLOBIN 12.6 GM/dL (11.7-16.9); LYMPH % 17.3 % (8-40); MCH 33.6 pg (25.7-33.7); MEAN CELL VOLUME 101.7 fl (80-96); MEAN PLT VOLUME 11.2 fl (7.5-11.1); MONO % 15.4 % (3.8-10.2); NEUT % 64.9 % (42.8-82.8); PLATELET COUNT 88 10^3/uL (134-434); RBC 3.76 M/mm3 (4.00-5.60); RDW 13.9 % (11.9-15.9); WHITE BLOOD COUNT 6.2 K/mm3 (4.0-10.0)
[2021-11-23 07:58] LABS: ALBUMIN 2.9 g/dl (3.4-5.0); BLOOD UREA NITROGEN 37.8 mg/dL (7-18); CALCIUM 9.1 mg/dL (8.5-10.1)
[2021-11-23 07:59] LABS: MAGNESIUM 1.9 mg/dL (1.8-2.4)
[2021-11-23 08:01] LABS: CREATININE 0.8 mg/dL (0.55-1.3); PHOSPHOROUS 3.5 mg/dL (2.5-4.9)
[2021-11-23 08:03] LABS: TOT PROT 6.9 g/dl (6.4-8.2)
[2021-11-23 08:04] LABS: BILIRUBIN,TOTAL 1.9 mg/dL (0.2-1)
[2021-11-23] MEDS ORDERED: REGADENOSON 0.4 MG/5 ML PRE-FILLED SYRINGE IVPUSH ONE ×2 (09:35→10:00)
[2021-11-23] MEDS: CARVEDILOL 6.25 MG TABLET (FP) PO SCH ×2 (11:09→21:24)
[2021-11-23] MEDS: ASPIRIN COATED 81 MG TABLET.EC PO SCH (11:10)
[2021-11-23] MEDS: SACUBITRIL/VALSARTAN 24 MG-26 MG TABLET PO SCH ×2 (11:10→21:24)
[2021-11-23] MEDS: FOLIC ACID 1 MG TABLET (FP) PO SCH (11:11)
[2021-11-23] MEDS: THIAMINE HCL 200 MG/2 ML VIAL IVPB SCH ×2 (11:12→21:24)
[2021-11-23] MEDS: ATORVASTATIN CA 80 MG TABLET (FP) PO SCH (21:24)
[2021-11-24 07:29] LABS: BASO % 0.8 % (0-2.0); EOS % 1.6 % (0-4.5); HEMATOCRIT 41.4 % (35.4-49); HEMOGLOBIN 13.8 GM/dL (11.7-16.9); LYMPH % 20.7 % (8-40); MCH 34.1 pg (25.7-33.7); MCHC 33.3 g/dl (32.0-35.9); MEAN CELL VOLUME 102.5 fl (80-96); MEAN PLT VOLUME 11.2 fl (7.5-11.1); MONO % 12.7 % (3.8-10.2); NEUT % 64.2 % (42.8-82.8); PLATELET COUNT 122 10^3/uL (134-434); RBC 4.04 M/mm3 (4.00-5.60); WHITE BLOOD COUNT 5.6 K/mm3 (4.0-10.0)
[2021-11-24 07:45] LABS: ALBUMIN 3.1 g/dl (3.4-5.0); BLOOD UREA NITROGEN 34.6 mg/dL (7-18); CALCIUM 9.5 mg/dL (8.5-10.1)
[2021-11-24 07:46] LABS: MAGNESIUM 1.9 mg/dL (1.8-2.4)
[2021-11-24 07:48] LABS: CREATININE 0.9 mg/dL (0.55-1.3)
[2021-11-24 07:49] LABS: PHOSPHOROUS 2.5 mg/dL (2.5-4.9)
[2021-11-24 07:50] LABS: BILIRUBIN,TOTAL 1.9 mg/dL (0.2-1); TOT PROT 7.3 g/dl (6.4-8.2)
[2021-11-24] MEDS: THIAMINE HCL 200 MG/2 ML VIAL IVPB SCH ×2 (09:05→22:10)
[2021-11-24] MEDS: FOLIC ACID 1 MG TABLET (FP) PO SCH (09:05)
[2021-11-24] MEDS: ASPIRIN COATED 81 MG TABLET.EC PO SCH (09:05)
[2021-11-24] MEDS: SACUBITRIL/VALSARTAN 24 MG-26 MG TABLET PO SCH ×2 (09:05→22:10)
[2021-11-24] MEDS: CARVEDILOL 6.25 MG TABLET (FP) PO SCH (10:31)
[2021-11-24] MEDS: CARVEDILOL 3.125 MG TABLET (FP) PO SCH ×2 (10:50→22:10)
[2021-11-24 11:08] LABS: BILIRUBIN,DIRECT 1.1 mg/dL (0.0-0.2)
[2021-11-25 09:14] LABS: BASO % 0.8 % (0-2.0); EOS % 1.5 % (0-4.5); HEMATOCRIT 38.6 % (35.4-49); HEMOGLOBIN 12.9 GM/dL (11.7-16.9); LYMPH % 24.2 % (8-40); MCH 33.7 pg (25.7-33.7); MCHC 33.4 g/dl (32.0-35.9); MEAN CELL VOLUME 100.8 fl (80-96); MEAN PLT VOLUME 11.2 fl (7.5-11.1); MONO % 14.4 % (3.8-10.2); NEUT % 59.1 % (42.8-82.8); PLATELET COUNT 110 10^3/uL (134-434); RBC 3.83 M/mm3 (4.00-5.60); RDW 13.8 % (11.9-15.9); WHITE BLOOD COUNT 5.4 K/mm3 (4.0-10.0)
[2021-11-25 09:42] LABS: ALBUMIN 2.8 g/dl (3.4-5.0); BLOOD UREA NITROGEN 28.9 mg/dL (7-18); CALCIUM 9.1 mg/dL (8.5-10.1); MAGNESIUM 1.9 mg/dL (1.8-2.4)
[2021-11-25 09:44] LABS: PHOSPHOROUS 2.4 mg/dL (2.5-4.9)
[2021-11-25 09:45] LABS: CREATININE 0.8 mg/dL (0.55-1.3)
[2021-11-25 09:46] LABS: BILIRUBIN,TOTAL 1.6 mg/dL (0.2-1); TOT PROT 6.6 g/dl (6.4-8.2)
[2021-11-25] MEDS ORDERED: SODIUM CHLORIDE 0.45% 1,000 ML IV SCH (10:15)
[2021-11-25] MEDS: ASPIRIN COATED 81 MG TABLET.EC PO SCH (10:38)
[2021-11-25] MEDS: CARVEDILOL 3.125 MG TABLET (FP) PO SCH ×2 (10:38→21:21)
[2021-11-25] MEDS: FOLIC ACID 1 MG TABLET (FP) PO SCH (10:38)
[2021-11-25] MEDS: SACUBITRIL/VALSARTAN 24 MG-26 MG TABLET PO SCH ×2 (10:39→21:21)
[2021-11-25] MEDS ORDERED: NAPH,MB-DB/K PH,MBDB POWDER PACKET PO ONE (10:45)
[2021-11-25] MEDS: THIAMINE HCL 200 MG/2 ML VIAL IVPB SCH ×2 (10:53→21:21)
[2021-11-25] MEDS: KCL 10 MEQ IVPB 10 MEQ/100 ML INFUS.BAG IVPB SCH ×3 (11:08→14:42)
[2021-11-25] MEDS: HEPARIN NA (PORCINE) 5,000 UNITS/ML 1ML VIAL SQ SCH (21:21)
[2021-11-26] MEDS: HEPARIN NA (PORCINE) 5,000 UNITS/ML 1ML VIAL SQ SCH ×3 (05:18→22:36)
[2021-11-26 07:32] LABS: BASO % 0.9 % (0-2.0); EOS % 1.7 % (0-4.5); HEMATOCRIT 36.3 % (35.4-49); HEMOGLOBIN 12.1 GM/dL (11.7-16.9); MCH 33.4 pg (25.7-33.7); MCHC 33.5 g/dl (32.0-35.9); MEAN CELL VOLUME 99.9 fl (80-96); MEAN PLT VOLUME 10.9 fl (7.5-11.1); MONO % 14.3 % (3.8-10.2); NEUT % 58.1 % (42.8-82.8); PLATELET COUNT 116 10^3/uL (134-434); RBC 3.63 M/mm3 (4.00-5.60); RDW 13.8 % (11.9-15.9); WHITE BLOOD COUNT 5.2 K/mm3 (4.0-10.0)
[2021-11-26 07:45] LABS: BLOOD UREA NITROGEN 24.2 mg/dL (7-18)
[2021-11-26 07:46] LABS: ALBUMIN 2.4 g/dl (3.4-5.0); CALCIUM 8.4 mg/dL (8.5-10.1); MAGNESIUM 1.7 mg/dL (1.8-2.4)
[2021-11-26 07:48] LABS: PHOSPHOROUS 2.8 mg/dL (2.5-4.9)
[2021-11-26 07:49] LABS: CREATININE 0.9 mg/dL (0.55-1.3)
[2021-11-26 07:50] LABS: BILIRUBIN,TOTAL 1.2 mg/dL (0.2-1)
[2021-11-26] MEDS: SACUBITRIL/VALSARTAN 24 MG-26 MG TABLET PO SCH ×2 (09:57→22:36)
[2021-11-26] MEDS: THIAMINE HCL 200 MG/2 ML VIAL IVPB SCH ×2 (09:58→22:37)
[2021-11-26] MEDS: CARVEDILOL 3.125 MG TABLET (FP) PO SCH ×2 (09:58→22:36)
[2021-11-26] MEDS: FOLIC ACID 1 MG TABLET (FP) PO SCH (09:58)
[2021-11-26] MEDS: ASPIRIN COATED 81 MG TABLET.EC PO SCH (09:58)
[2021-11-26] MEDS ORDERED: MAGNESIUM SULF 50% (8.12 MEQ/2 ML-1 GM VIAL) IVPB ONE ×2 (11:04→13:45)
[2021-11-26 16:47] LABS: INR 1.27 (0.83-1.09); PROTHROMBIN TIME (PATIENT) 14.6 SEC (9.7-13.0)
[2021-11-26 16:49] LABS: ACTIVATED PTT 35.1 SECONDS (25.2-36.5)
[2021-11-26 17:03] VITALS: BMI 24.0
[2021-11-26] MEDS: AMINO ACIDS/PROTEIN HYDROLYS 30 ML LIQUID.PKT PO SCH (18:30)
[2021-11-27] MEDS: HEPARIN NA (PORCINE) 5,000 UNITS/ML 1ML VIAL SQ SCH ×3 (06:38→21:33)
[2021-11-27 07:48] LABS: HEMATOCRIT 36.7 % (35.4-49); HEMOGLOBIN 12.4 GM/dL (11.7-16.9); MCH 33.8 pg (25.7-33.7); MCHC 33.9 g/dl (32.0-35.9); MEAN CELL VOLUME 99.5 fl (80-96); MEAN PLT VOLUME 11.6 fl (7.5-11.1); PLATELET COUNT 134 10^3/uL (134-434); RBC 3.69 M/mm3 (4.00-5.60); RDW 13.8 % (11.9-15.9); WHITE BLOOD COUNT 6.3 K/mm3 (4.0-10.0)
[2021-11-27 08:25] LABS: ALBUMIN 2.5 g/dl (3.4-5.0); BLOOD UREA NITROGEN 23.4 mg/dL (7-18); MAGNESIUM 2.3 mg/dL (1.8-2.4)
[2021-11-27 08:28] LABS: CREATININE 0.9 mg/dL (0.55-1.3); PHOSPHOROUS 3.1 mg/dL (2.5-4.9)
[2021-11-27 08:29] LABS: BILIRUBIN,TOTAL 1.3 mg/dL (0.2-1); TOT PROT 6.2 g/dl (6.4-8.2)
[2021-11-27] MEDS: SACUBITRIL/VALSARTAN 24 MG-26 MG TABLET PO SCH ×2 (10:31→21:33)
[2021-11-27] MEDS: FOLIC ACID 1 MG TABLET (FP) PO SCH (10:31)
[2021-11-27] MEDS: MULTIVITAMINS (DAILY MVI) TABLET (FP) PO SCH (10:31)
[2021-11-27] MEDS: AMINO ACIDS/PROTEIN HYDROLYS 30 ML LIQUID.PKT PO SCH ×2 (10:31→18:16)
[2021-11-27] MEDS: THIAMINE HCL 200 MG/2 ML VIAL IVPB SCH ×2 (10:31→21:31)
[2021-11-27] MEDS: CARVEDILOL 3.125 MG TABLET (FP) PO SCH ×2 (10:31→21:33)
[2021-11-27] MEDS: ASPIRIN COATED 81 MG TABLET.EC PO SCH (10:31)
[2021-11-27 11:55] LABS: ANISOCYTOSIS 0; HELMET CELLS 0; HOWELL-JOLLY BODIES 0; MACROCYTOSIS 0; OVALOCYTE 0; ROULEAU 0; SICKELED CELLS 0; TARGET CELLS 0; TEAR DROP CELLS 0; TOXIC GRANULATION 0
[2021-11-28] MEDS ORDERED: POTASSIUM CHLORIDE TABS 20 MEQ TABLET.ER (FP) PO ONE
[2021-11-28] MEDS: HEPARIN NA (PORCINE) 5,000 UNITS/ML 1ML VIAL SQ SCH ×4 (06:55→21:54)
[2021-11-28 07:57] LABS: BLOOD UREA NITROGEN 21.4 mg/dL (7-18); CALCIUM 8.9 mg/dL (8.5-10.1); MAGNESIUM 1.8 mg/dL (1.8-2.4)
[2021-11-28 07:58] LABS: ALBUMIN 2.4 g/dl (3.4-5.0)
[2021-11-28 08:00] LABS: CREATININE 0.8 mg/dL (0.55-1.3)
[2021-11-28 08:02] LABS: BILIRUBIN,TOTAL 1.4 mg/dL (0.2-1)
[2021-11-28 08:14] LABS: BASO % 1.3 % (0-2.0); EOS % 1.5 % (0-4.5); HEMATOCRIT 35.3 % (35.4-49); HEMOGLOBIN 11.8 GM/dL (11.7-16.9); LYMPH % 28.5 % (8-40); MCHC 33.3 g/dl (32.0-35.9); MEAN PLT VOLUME 11.6 fl (7.5-11.1); MONO % 13.3 % (3.8-10.2); NEUT % 55.4 % (42.8-82.8); PLATELET COUNT 152 10^3/uL (134-434); RBC 3.57 M/mm3 (4.00-5.60); RDW 13.9 % (11.9-15.9); WHITE BLOOD COUNT 7.6 K/mm3 (4.0-10.0)
[2021-11-28] MEDS: AMINO ACIDS/PROTEIN HYDROLYS 30 ML LIQUID.PKT PO SCH ×2 (09:17→17:49)
[2021-11-28] MEDS: SACUBITRIL/VALSARTAN 24 MG-26 MG TABLET PO SCH ×3 (09:17→21:54)
[2021-11-28] MEDS: CARVEDILOL 3.125 MG TABLET (FP) PO SCH ×3 (09:18→21:54)
[2021-11-28] MEDS: THIAMINE HCL 200 MG/2 ML VIAL IVPB SCH ×3 (09:18→21:54)
[2021-11-28] MEDS: FOLIC ACID 1 MG TABLET (FP) PO SCH (09:18)
[2021-11-28] MEDS: ASPIRIN COATED 81 MG TABLET.EC PO SCH (09:18)
[2021-11-28] MEDS: MULTIVITAMINS (DAILY MVI) TABLET (FP) PO SCH (09:18)
[2021-11-28] MEDS ORDERED: POTASSIUM CHLORIDE ORAL LIQUID 20 MEQ/15 ML PO ONE (11:29)
[2021-11-29] MEDS: HEPARIN NA (PORCINE) 5,000 UNITS/ML 1ML VIAL SQ SCH ×3 (06:36→21:58)
[2021-11-29 07:28] LABS: BASO % 1.3 % (0-2.0); EOS % 1.8 % (0-4.5); HEMATOCRIT 32.9 % (35.4-49); HEMOGLOBIN 11.1 GM/dL (11.7-16.9); LYMPH % 30.8 % (8-40); MCH 33.3 pg (25.7-33.7); MCHC 33.7 g/dl (32.0-35.9); MEAN CELL VOLUME 98.7 fl (80-96); MEAN PLT VOLUME 11.2 fl (7.5-11.1); MONO % 13.8 % (3.8-10.2); NEUT % 52.3 % (42.8-82.8); PLATELET COUNT 166 10^3/uL (134-434); RBC 3.34 M/mm3 (4.00-5.60); RDW 14.3 % (11.9-15.9); WHITE BLOOD COUNT 7.7 K/mm3 (4.0-10.0)
[2021-11-29 07:51] LABS: CALCIUM 8.9 mg/dL (8.5-10.1)
[2021-11-29 07:52] LABS: ALBUMIN 2.3 g/dl (3.4-5.0); BLOOD UREA NITROGEN 20.1 mg/dL (7-18); MAGNESIUM 1.8 mg/dL (1.8-2.4)
[2021-11-29 07:55] LABS: CREATININE 0.7 mg/dL (0.55-1.3); PHOSPHOROUS 3.1 mg/dL (2.5-4.9)
[2021-11-29 07:56] LABS: BILIRUBIN,TOTAL 1.4 mg/dL (0.2-1); TOT PROT 5.8 g/dl (6.4-8.2)
[2021-11-29] MEDS ORDERED: POTASSIUM CHLORIDE TABS 20 MEQ TABLET.ER (FP) PO ONE (09:02)
[2021-11-29] MEDS: KCL 10 MEQ IVPB 10 MEQ/100 ML INFUS.BAG IVPB SCH ×3 (09:40→14:51)
[2021-11-29] MEDS: AMINO ACIDS/PROTEIN HYDROLYS 30 ML LIQUID.PKT PO SCH ×2 (09:40→18:41)
[2021-11-29] MEDS: SACUBITRIL/VALSARTAN 24 MG-26 MG TABLET PO SCH ×2 (10:12→21:57)
[2021-11-29] MEDS: MULTIVITAMINS (DAILY MVI) TABLET (FP) PO SCH (10:13)
[2021-11-29] MEDS: ASPIRIN COATED 81 MG TABLET.EC PO SCH (10:13)
[2021-11-29] MEDS: FOLIC ACID 1 MG TABLET (FP) PO SCH (10:14)
[2021-11-29] MEDS: CARVEDILOL 3.125 MG TABLET (FP) PO SCH ×2 (10:15→21:57)
[2021-11-29] MEDS: THIAMINE HCL 200 MG/2 ML VIAL IVPB SCH ×2 (10:16→21:58)
[2021-11-29 14:48] LABS: BILIRUBIN,DIRECT 0.8 mg/dL (0.0-0.2)
[2021-11-29 19:07] LABS: GLIADIN ANTIBODY IGA 13 units (0-19); GLIADIN ANTIBODY IGG 3 units (0-19); TRANSGLUTAMINASE IGG 4 U/mL (0-5)
[2021-11-30] MEDS: HEPARIN NA (PORCINE) 5,000 UNITS/ML 1ML VIAL SQ SCH ×2 (06:42→14:43)
[2021-11-30] MEDS: AMINO ACIDS/PROTEIN HYDROLYS 30 ML LIQUID.PKT PO SCH ×2 (08:28→17:02)
[2021-11-30 09:06] LABS: BASO % 1.3 % (0-2.0); EOS % 1.7 % (0-4.5); HEMOGLOBIN 11.2 GM/dL (11.7-16.9); LYMPH % 24.7 % (8-40); MCH 32.5 pg (25.7-33.7); MCHC 32.8 g/dl (32.0-35.9); MEAN CELL VOLUME 99.1 fl (80-96); MEAN PLT VOLUME 11.3 fl (7.5-11.1); MONO % 11.8 % (3.8-10.2); NEUT % 60.5 % (42.8-82.8); PLATELET COUNT 203 10^3/uL (134-434); RBC 3.43 M/mm3 (4.00-5.60); RDW 14.1 % (11.9-15.9); WHITE BLOOD COUNT 8.4 K/mm3 (4.0-10.0)
[2021-11-30] MEDS: SACUBITRIL/VALSARTAN 24 MG-26 MG TABLET PO SCH (09:53)
[2021-11-30] MEDS: THIAMINE HCL 200 MG/2 ML VIAL IVPB SCH (09:54)
[2021-11-30] MEDS: CARVEDILOL 3.125 MG TABLET (FP) PO SCH (09:54)
[2021-11-30] MEDS ORDERED: ASPIRIN COATED 81 MG TABLET.EC PO SCH (10:00)
[2021-11-30] MEDS ORDERED: FOLIC ACID 1 MG TABLET (FP) PO SCH (10:00)
[2021-11-30] MEDS ORDERED: MULTIVITAMINS (DAILY MVI) TABLET (FP) PO SCH (10:00)
[2021-11-30 10:29] LABS: ALBUMIN 2.6 g/dl (3.4-5.0); BLOOD UREA NITROGEN 17.8 mg/dL (7-18); CALCIUM 9.3 mg/dL (8.5-10.1)
[2021-11-30 10:30] LABS: MAGNESIUM 1.7 mg/dL (1.8-2.4)
[2021-11-30 10:32] LABS: CREATININE 0.7 mg/dL (0.55-1.3); PHOSPHOROUS 2.9 mg/dL (2.5-4.9)
[2021-11-30 10:34] LABS: TOT PROT 6.5 g/dl (6.4-8.2)
[2021-11-30 10:36] LABS: BILIRUBIN,TOTAL 1.9 mg/dL (0.2-1)
[2021-11-30 14:28] VITALS: BP 123/74; PULSE 98; TEMP 98.1
[2021-11-30] MEDS ORDERED: POTASSIUM CHLORIDE TABS 20 MEQ TABLET.ER (FP) PO ONE (15:44)
== END 2021-11-30 17:40 | disposition home or self-care (01) | DRG 897 ==
LOC: JER 02:09 → JERBED 05:56 → J4W 09:39 → INTOOBSV 11-19 17:06 → OBSVTOIN 11-19 17:06 → J6S 11-29 14:06 → UNDODISIN 11-29 14:11 → J6S 11-30 13:59
PROVIDERS: ADMIT Internal Medicine; ATTEND Internal Medicine
DX: F10.230 Alcohol dependence with withdrawal, uncomplicated (principal); I24.8 Other forms of acute ischemic heart disease; I42.8 Other cardiomyopathies; I50.22 Chronic systolic (congestive) heart failure; I44.7 Left bundle-branch block, unspecified; E87.6 Hypokalemia; E83.42 Hypomagnesemia; R47.81 Slurred speech; I83.93 Asymptomatic varicose veins of bilateral lower extremities; D69.6 Thrombocytopenia, unspecified; R74.01 Elevation of levels of liver transaminase levels; K70.10 Alcoholic hepatitis without ascites; I11.0 Hypertensive heart disease with heart failure
CPT/HCPCS: 36415; 70450-TC; 71045-TC-FY; 72125-TC; 74178-TC; 76705-TC; 80053; 80061; 80307; 81003; 82105; 82248; 82550; 82784; 83516; 83735; 84100; 84132; 84443; 84484; 85025; 85027; 85610; 85730; 86038; 86704; 86803; 87340; 87517; 93005; 93010; 93306-TC; 97116-GP; 97162-GP; 99285-25; A9502; C9803-CS; G0378; J1644; Q9967; U0003; U0005

== ENCOUNTER 2022-10-14 10:40 | Inpatient (IN) | payer OTHER ==
[2022-10-14 11:59] VITALS: BMI 21.7
[2022-10-14] MEDS ORDERED: ONDANSETRON *ODT* 4 MG TABLET SL PRN (12:24)
[2022-10-14] MEDS ORDERED: MAG HYDROX/AL HYDROX/SIMETH 30 ML UNIT-DOSE CUP PO PRN (12:24)
[2022-10-14] MEDS ORDERED: MAGNESIUM HYDROX 2400MG/30ML ORAL SUSPENSION 30 ML CUP PO PRN (12:24)
[2022-10-14] MEDS ORDERED: ACETAMINOPHEN 325 MG TABLET (FP) PO PRN (12:24)
[2022-10-14] MEDS ORDERED: NALOXONE HCL (KLOXXADO) 8 MG SPRAY NS PRN (12:24)
[2022-10-14] MEDS ORDERED: DICYCLOMINE HCL 10 MG CAPSULE PO PRN (12:24)
[2022-10-14] MEDS ORDERED: NALOXONE HCL 0.4 MG/ML VIAL IM PRN (12:24)
[2022-10-14] MEDS ORDERED: LOPERAMIDE HCL 2 MG CAPSULE PO PRN (12:24)
[2022-10-14] MEDS ORDERED: IBUPROFEN 600 MG TABLET (FP) PO PRN (12:24)
[2022-10-14] MEDS ORDERED: BENZOCAINE/MENTHOL (CHLORASEPTIC ) LOZENGE MM PRN (12:24)
[2022-10-14] MEDS ORDERED: IBUPROFEN 400 MG TABLET (FP) PO PRN (12:24)
[2022-10-14] MEDS ORDERED: BENZONATATE 200 MG CAPSULE PO PRN (12:24)
[2022-10-14] MEDS ORDERED: POLYETHYLENE GLYCOL (HEALTHYLAX) 3350 17 GM PACKET PO PRN (12:24)
[2022-10-14] MEDS ORDERED: BISMUTH SUBSALICYLATE 524 MG/30 ML PO PRN (12:24)
[2022-10-14] MEDS ORDERED: guaiFENesin 600 MG TABLET.ER (FP) PO PRN (12:24)
[2022-10-14] MEDS: hydrOXYzine PAMOATE 25 MG CAPSULE (FP) PO PRN ×2 (17:58→22:36)
[2022-10-14] MEDS: THIAMINE HCL 100 MG TABLET (FP) PO SCH (22:36)
[2022-10-14] MEDS: MELATONIN 5 MG TABLETS PO SCH (22:36)
[2022-10-14] MEDS: LORazepam 2 MG TABLET PO SCH (23:53)
[2022-10-15] MEDS: LORazepam 2 MG TABLET PO SCH ×2 (05:45→10:41)
[2022-10-15] MEDS: PRENATAL VITAMINS W/ FOLIC ACID TABLET (FP) PO SCH (10:41)
[2022-10-15] MEDS: hydrOXYzine PAMOATE 25 MG CAPSULE (FP) PO PRN ×2 (10:43→22:29)
[2022-10-15 11:05] LABS: CALCIUM 9.6 mg/dL (8.5-10.1)
[2022-10-15 11:06] LABS: ALBUMIN 3.4 g/dl (3.4-5.0); BLOOD UREA NITROGEN 15.8 mg/dL (7-18)
[2022-10-15 11:09] LABS: CREATININE 0.6 mg/dL (0.55-1.3)
[2022-10-15 11:10] LABS: TOT PROT 7.6 g/dl (6.4-8.2)
[2022-10-15 11:12] LABS: HEMATOCRIT 38.5 % (35.4-49); MCH 30.1 pg (25.7-33.7); MCHC 33.8 g/dl (32.0-35.9); MEAN CELL VOLUME 89.1 fl (80-96); MEAN PLT VOLUME 10.1 fl (7.5-11.1); PLATELET COUNT 91 10^3/uL (134-434); RBC 4.33 M/mm3 (4.00-5.60); RDW 16.9 % (11.9-15.9); WHITE BLOOD COUNT 5.1 K/mm3 (4.0-10.0)
[2022-10-15 11:15] LABS: BILIRUBIN,TOTAL 1.6 mg/dL (0.2-1)
[2022-10-15] MEDS: LORazepam 1 MG TABLET PO PRN ×2 (15:57→19:34)
[2022-10-15] MEDS: LORazepam 1 MG TABLET PO SCH ×2 (18:54→22:30)
[2022-10-15] MEDS: THIAMINE HCL 100 MG TABLET (FP) PO SCH (22:29)
[2022-10-15] MEDS: MELATONIN 5 MG TABLETS PO SCH (22:29)
[2022-10-16] MEDS: LORazepam 1 MG TABLET PO SCH ×2 (05:42→10:24)
[2022-10-16 09:28] VITALS: BP 122/78; PULSE 101; RESP 20; TEMP 98.3
[2022-10-16] MEDS: PRENATAL VITAMINS W/ FOLIC ACID TABLET (FP) PO SCH (10:24)
[2022-10-17] MEDS ORDERED: LORazepam 0.5 MG TABLET PO PRN
[2022-10-17] MEDS ORDERED: LORazepam 0.5 MG TABLET PO SCH (05:00)
[2022-10-18] MEDS ORDERED: LORazepam 0.5 MG TABLET PO ONE (05:00)
== END 2022-10-16 10:18 | disposition left against medical advice (07) | DRG 894 ==
LOC: YASAS 10:40 → Y6N 12:54
PROVIDERS: ADMIT Allergy & Immunology; ATTEND Surgery
PROC: HZ2ZZZZ Detoxification Services for Substance Abuse Treatment (ICD-10-PCS; principal; 2022-10-14)
DX: F10.230 Alcohol dependence with withdrawal, uncomplicated (principal); F10.282 Alcohol dependence with alcohol-induced sleep disorder; F31.9 Bipolar disorder, unspecified; E78.2 Mixed hyperlipidemia; I10 Essential (primary) hypertension; I25.2 Old myocardial infarction; I83.93 Asymptomatic varicose veins of bilateral lower extremities; Z87.891 Personal history of nicotine dependence
CPT/HCPCS: 36415; 80053; 85027; 86780; 87811; C9803-CS; U0003; U0005